=== PATIENT | female | born 1995 | race Caucasian/White ===

== ENCOUNTER → 2018-03-06 14:15 | Outpatient (CLI) | payer OTHER, SELFPAY ==
--- NOTE | 2018-03-06 14:15 | DT_ITS ---
This patient was seen during an EMR downtime March 02, 2018 - March 09, 2018. This patient may have a combination of paper and electronic documentation or all paper documentation. All documentation is viewable within the e-chart portion of [facility] for each patient visit.
[2018-03-14 10:25] LABS: EBV Acute VCA IgM > 160.0 U/mL (0.0-35.9); EBV Early Antigen IgG >150.0 U/mL (0.0-8.9); EBV Nuclear Antigen IgG < 18.0 U/mL (0.0-17.9); EBV-VCA IgG 88.1 U/mL (0.0-17.9)
== END ==
PROVIDERS: Family Provider Family Medicine; PCP Family Medicine; Visit Provider Otolaryngology
DX: J03.90 Acute tonsillitis, unspecified (principal)
CPT/HCPCS: 36415; 86663; 86664; 86665; 87070; 87077; 87186

== ENCOUNTER → 2019-03-17 | Outpatient (CLI) | payer OTHER, SELFPAY ==
[2019-03-17 08:59] VITALS: BMI 24.5
[2019-03-17 17:36] LABS: Chlamydia Trachomatis by PCR Negative (Negative); Neisserai gonorrhoeae by PCR Negative (Negative); Probe Check PASS; Sample Adequacy Control PASS; Specimen Processing Control PASS
== END | disposition home or self-care (01) ==
LOC: LABSPEC 13:43
PROVIDERS: Family Provider Family Medicine; PCP Family Medicine; Referring Provider Nurse Practitioner Women's Health; Visit Provider Nurse Practitioner Women's Health
DX: Z11.3 Encounter for screening for infections with a predominantly sexual mode of transmission (principal)
CPT/HCPCS: 87491; 87591

== ENCOUNTER → 2019-05-11 09:13 | Outpatient (CLI) | payer OTHER, SELFPAY ==
[2019-05-11 08:50] VITALS: BMI 24.5
[2019-05-11 09:36] LABS: Absolute Lymphocyte Count 1.58 X10^3/uL (0.83-4.51); Absolute Neutrophil Count 5.1 X10^3/uL (2.0-7.7); Basophil# 0.02 X10^3/uL; Basophil% 0.3 % (0-1); Eosinophil# 0.04 X10^3/uL; Eosinophils% 0.5 % (0-5); Hematocrit 36.2 % (37-47); Hemoglobin 12.2 g/dL (12.0-15.0); Lymphocyte # 1.58 X10^3/ul (4.0); Lymphocyte % 21.4 % (19-41); Mean Corp Hgb Conc 33.7 g/dL (32-36); Mean Corpuscular Hgb 30.3 pg (27.0-32.0); Mean Corpuscular Volume 89.8 fL (81-99); Mean Platelet Vol. 10.4 fl (6.2-12.0); Monocyte# 0.55 X10^3/uL; Monocyte% 7.5 % (0-10); NRBC Flagged by Analyzer 0 % (0-5); Neutrophil # 5.14 X10^3/uL (2.7-7.7); Neutrophil % 69.8 % (47-70); Platelet Count 247 K/mm3 (150-450); RBC Distribution Width CV 12.1 % (11.6-14.6); RBC Distribution Width SD 39.6 fl (35.1-43.9); Red Blood Count 4.03 M/mm3 (4.2-5.4); White Blood Count 7.4 K/mm3 (4.4-11.0)
[2019-05-11 10:49] LABS: HIV - WCH Non-Reactive (Nonreactive); Hepatitis B Surface Antigen Non-Reactive (Nonreactive)
[2019-05-11 14:53] LABS: Chlamydia Trachomatis by PCR Negative (Negative); Neisserai gonorrhoeae by PCR Negative (Negative); Probe Check PASS; Sample Adequacy Control PASS; Specimen Processing Control PASS
[2019-05-14 01:38] LABS: Rapid Plasmin Reagin (RPR) NONREACTIVE (NONREACTIVE)
[2019-05-16 11:50] LABS: HPV Reflexed? NOT INDICATED
== END ==
PROVIDERS: Nurse Practitioner Women's Health; Family Provider Family Medicine; PCP Family Medicine; Referring Provider Obstetrics & Gynecology; Visit Provider Obstetrics & Gynecology
DX: Z34.90 Encounter for supervision of normal pregnancy, unspecified, unspecified trimester (principal)
CPT/HCPCS: 36415; 85025; 86592; 86703; 86762; 86850; 86900; 86901; 87086; 87340; 87491; 87591; 87624; 88175; G0145

== ENCOUNTER → 2019-05-17 11:25 | Outpatient (CLI) | payer OTHER, SELFPAY ==
[2019-05-11 08:50] VITALS: BMI 24.5
--- NOTE | 2019-05-17 11:26 | US_ITS ---
STUDY: FIRST TRIMESTER OBSTETRICAL ULTRASOUND REASON FOR EXAM: Female, 24 years old. assessment LMP: TECHNIQUE: Transvaginal TECHNICAL QUALITY: Adequate. PRIOR ULTRASOUND: None. FINDINGS: There is visualization of a single gestational sac in a normal intrauterine position. The mean sac diameter (MSD) measures 2.14 cm, indicating an estimated gestational age (EGA) of 7 weeks, 1 days. The gestational sac shape is within normal limits. There is a visualized yolk sac. The yolk sac measures 2.7 mm. The placenta is non-visualized. There is visualization of a live embryo. The crown-rump length (CRL) measures 9.4 mm, indicating an estimated gestational age (EGA) of 7 weeks, 0 days. There is demonstrated cardiac activity with a heart rate of 141 bpm. The estimated gestation age (EGA) by US is 7 weeks, 1 days. The estimated date of delivery (KISHA) by US is 01/02/2020. The uterus measures 3.0 x 5.9 x 4.6 cm. There is no demonstrated uterine fibroid. The cervix is closed. The right ovary measures 3.5 x 2.5 x 2.2 cm. There is no right ovarian cyst. There is no visualized right adnexal mass or complex lesion. The left ovary measures 2.2 x 1.4 x 1.5 cm. There is no left ovarian cyst. There is no visualized left adnexal mass or complex lesion. There is a moderate amount of fluid in the cul de sac. US/Init OB < 14Wks US IMPRESSION: Viable 7 weeks 1 day gestation with heart motion of 141 BPM. Moderate free fluid in the cul-de-sac. Cervix is closed. KISHA is 01/02/2020 Electronically Signed: Jose Flannery MD at 15:58 EDT Tel [phone], Service support ,
== END ==
PROVIDERS: Family Provider Family Medicine; PCP Family Medicine; Referring Provider Nurse Practitioner Women's Health; Visit Provider Nurse Practitioner Women's Health
DX: Z78.9 Other specified health status (principal)
CPT/HCPCS: 76801

== ENCOUNTER → 2019-06-09 11:23 | Outpatient (CLI) | payer OTHER, SELFPAY ==
[2019-06-09 11:22] VITALS: BMI 24.5
== END ==
PROVIDERS: Family Provider Family Medicine; PCP Family Medicine; Referring Provider Obstetrics & Gynecology; Visit Provider Obstetrics & Gynecology
DX: Z34.81 Encounter for supervision of other normal pregnancy, first trimester (principal)
CPT/HCPCS: 36415

== ENCOUNTER → 2019-08-19 07:46 | Outpatient (CLI) | payer OTHER, SELFPAY ==
[2019-08-04 10:40] VITALS: BMI 24.5
[2019-08-04 10:50] VITALS: BMI 25.7
--- NOTE | 2019-08-19 07:47 | US_ITS ---
STUDY: SECOND AND THIRD TRIMESTER OBSTETRICAL ULTRASOUND REASON FOR EXAM: Female, 24 years old . anatomy. LMP: March 29, 2019. TECHNIQUE: Transabdominal TECHNICAL QUALITY: Adequate. PRIOR ULTRASOUND: Comparison is made with prior study dated May 17, 2019. FINDINGS: There is a single intrauterine fetus. The fetus is in a transverse lie with the head on the maternal right side. There is demonstrated cardiac activity with a heart rate of 145 bpm. There is a normal amniotic fluid volume. The largest amniotic fluid pocket measures 3.6 cm x 4 cm. The amniotic fluid index (LAKIA) is within normal limits. The placenta is posterior in location and is not low lying. There are Grade 0 placental changes. The cervix measures 4.1 cm in length. The bilateral adnexal regions are normal. BIOMETRY: BPD: 4.7 cm: 20 weeks, 1 days HC: 18.5 cm: 20 weeks, 5 days AC: 15.6 cm: 20 weeks, 5 days FL: 3.4 cm: 20 weeks, 4 days CI: 74% FL/BPD: 72% FL/HC: FL/AC: 22% HC/AC: 1.19 age by current US: 20 weeks, 4 days. KISHA by current US: January 02, 2020. Estimated weight: 372 grams, +/- 55 grams, 52 %. age by prior US: 20 weeks, 4 days. KISHA by prior US: January 02, 2020. Age by LMP: 20 weeks, 3 days. KISHA by LMP: January 03, 2020. ANATOMY: Gender: Male Cranium: Normal lateral ventricles. Normal choroid plexus. Normal cerebellum. Normal cisterna magna. Normal face, nose and lips. Chest: Normal 4-chamber heart. Abdomen/Pelvis: Normal diaphragm. Normal stomach. Normal abdominal wall. Normal cord insertion. Normal 3 vessel cord. Normal kidneys. Normal bladder. Spine: Normal cervical spine. Normal thoracic spine. Normal lumbar spine. Normal sacrum. Extremities: Normal bilateral upper extremities. Normal bilateral lower extremities. US/OB Anatomy Scan IMPRESSION: Single live intrauterine gestation with a mean gestational age of 20 weeks and 4 days. The measurements obtained today following the normal expected range. Electronically Signed: Viet Garcia, at 13:33 EST , Service support ,
== END ==
PROVIDERS: Referring Provider Obstetrics & Gynecology; Visit Provider Obstetrics & Gynecology
DX: O32.2XX0 Maternal care for transverse and oblique lie, not applicable or unspecified (principal); Z3A.20 20 weeks gestation of pregnancy
CPT/HCPCS: 76805

== ENCOUNTER → 2019-09-30 10:35 | Outpatient (CLI) | payer OTHER, SELFPAY ==
[2019-09-01 11:14] VITALS: BMI 25.7
[2019-09-30 11:09] LABS: Absolute Lymphocyte Count 1.65 X10^3/uL (0.83-4.51); Absolute Neutrophil Count 6.4 X10^3/uL (2.0-7.7); Basophil# 0.03 X10^3/uL; Basophil% 0.3 % (0-1); Eosinophil# 0.05 X10^3/uL; Eosinophils% 0.6 % (0-5); Hematocrit 27.8 % (37-47); Hemoglobin 9.3 g/dL (12.0-15.0); Lymphocyte # 1.65 X10^3/ul (4.0); Lymphocyte % 18.7 % (19-41); Mean Corp Hgb Conc 33.5 g/dL (32-36); Mean Corpuscular Hgb 30.3 pg (27.0-32.0); Mean Corpuscular Volume 90.6 fL (81-99); Mean Platelet Vol. 10.2 fl (6.2-12.0); Monocyte# 0.49 X10^3/uL; Monocyte% 5.6 % (0-10); NRBC Flagged by Analyzer 0 % (0-5); Neutrophil # 6.43 X10^3/uL (2.7-7.7); Platelet Count 225 K/mm3 (150-450); RBC Distribution Width CV 12.6 % (11.6-14.6); RBC Distribution Width SD 41.1 fl (35.1-43.9); Red Blood Count 3.07 M/mm3 (4.2-5.4); White Blood Count 8.8 K/mm3 (4.4-11.0)
[2019-09-30 11:23] LABS: Glucose Challenge Gest 1H 50g 187 mg/dL (70-140)
== END ==
PROVIDERS: Nurse Practitioner Women's Health; Visit Provider Obstetrics & Gynecology
DX: Z34.00 Encounter for supervision of normal first pregnancy, unspecified trimester (principal)
CPT/HCPCS: 36415; 82950; 85025

== ENCOUNTER 2019-10-25 11:00 | Outpatient (RCR) | payer OTHER, SELFPAY ==
[2019-09-30 11:21] VITALS: BMI 25.7
== END 2019-10-29 23:59 ==
LOC: DC 11:00
PROVIDERS: Visit Provider Obstetrics & Gynecology
DX: Z71.3 Dietary counseling and surveillance (principal); O24.419 Gestational diabetes mellitus in pregnancy, unspecified control
CPT/HCPCS: 97802; G0108

== ENCOUNTER 2019-11-03 10:00 | Outpatient (RCR) | payer OTHER, SELFPAY ==
[2019-10-28 10:43] VITALS: BMI 25.7
== END 2019-11-03 23:59 | disposition home or self-care (01) ==
LOC: DC 10:00
PROVIDERS: Visit Provider Obstetrics & Gynecology
DX: Z71.3 Dietary counseling and surveillance (principal); O24.419 Gestational diabetes mellitus in pregnancy, unspecified control; Z3A.00 Weeks of gestation of pregnancy not specified

== ENCOUNTER → 2019-12-09 12:26 | Outpatient (CLI) | payer OTHER, SELFPAY ==
[2019-11-25 09:07] VITALS: BMI 25.7
[2019-12-09 09:09] VITALS: BMI 25.7
--- NOTE | 2019-12-09 12:27 | US_ITS ---
STUDY: SECOND AND THIRD TRIMESTER OBSTETRICAL ULTRASOUND REASON FOR EXAM: Female, 24 years old growth LMP: Unknown. TECHNIQUE: Transabdominal TECHNICAL QUALITY: Adequate. PRIOR ULTRASOUND: Previous study of 08/19/2019 FINDINGS: There is a single intrauterine fetus. The fetus is in a cephalic presentation. There is demonstrated cardiac activity with a heart rate of 147 bpm. There is a normal amniotic fluid volume. The largest amniotic fluid pocket measures 4.4 cm. The amniotic fluid index (LAKIA) is 13.1 cm. The placenta is posterior in location and is not low lying. There are Grade 2 placental changes. The cervix was not visualized. The adnexal regions are not visualized. BIOMETRY: BPD: 9.5 cm: 38 weeks, 3 days HC: 33.8 cm: 38 weeks, 5 days AC: 32.2 cm: 36 weeks, 0 days FL: 7.1 cm: 36 weeks, 2 days CI: 82% FL/BPD: 75% FL/AC: 22% HC/AC: 1.05 age by current US: 36 weeks, 4 days. KISHA by current US: 01/02/2020. Estimated weight: 3020 grams, +/- 447 grams, 55 %. age by prior US: 36 weeks, 4 days. KISHA by prior US: 01/02/2020. Age by LMP: 37 weeks, 5 days. KISHA by LMP: 12/25/2019. US/OB Limited With Biometrics IMPRESSION: Single viable intrauterine of approximately 36 weeks 4 days gestational age. The fetus is in cephalic presentation. The heart rate of 147 bpm is noted. Electronically Signed: Terry Smith MD at 18:57 EDT , Service support ,
== END ==
PROVIDERS: Referring Provider Obstetrics & Gynecology; Visit Provider Obstetrics & Gynecology
DX: O24.410 Gestational diabetes mellitus in pregnancy, diet controlled (principal); Z3A.36 36 weeks gestation of pregnancy
CPT/HCPCS: 76816; 87081

== ENCOUNTER 2019-12-16 17:45 | Outpatient (CLI) | payer OTHER, SELFPAY ==
[2019-12-13 14:01] VITALS: BMI 25.7
[2019-12-16 17:55] VITALS: BP 131/68; PULSE 98
[2019-12-16 18:03] VITALS: BMI 29.7
--- NOTE | 2019-12-22 06:53 | OB.TRI.PN ---
Progress Notes Date of Service: 12/16/19 Progress Note: Patient presents for triage evaluation secondary to decreased movement FHT: 130 Moderate variability reactive no decelerations category I tracing [place]: Irregular contractions Assessment and plan: deCreased movement reactive NST, reassuring maternal and status patient discharged to home to follow-up as scheduled. See problem list details for additional plan information. Multi Select Codes - Urinary/Genital Urinary/Genital CPT Codes: 35185 Vaginal Delivery global pkg
== END 2019-12-16 18:43 | disposition home or self-care (01) ==
LOC: WPOUT 17:48 → WP 17:49
PROVIDERS: Referring Provider Obstetrics & Gynecology; Visit Provider Obstetrics & Gynecology
DX: O36.8190 Decreased fetal movements, unspecified trimester, not applicable or unspecified (principal); Z3A.00 Weeks of gestation of pregnancy not specified
CPT/HCPCS: 59025; 59050; 99218; G0378

== ENCOUNTER → 2019-12-20 13:33 | Outpatient (CLI) | payer OTHER, SELFPAY ==
[2019-12-20 13:11] VITALS: BMI 29.7
[2019-12-20 13:48] LABS: Absolute Lymphocyte Count 1.71 X10^3/uL (0.83-4.51); Absolute Neutrophil Count 5.2 X10^3/uL (2.0-7.7); Basophil# 0.01 X10^3/uL; Basophil% 0.1 % (0-1); Eosinophil# 0.03 X10^3/uL; Eosinophils% 0.4 % (0-5); Hematocrit 29.5 % (37-47); Hemoglobin 9.4 g/dL (12.0-15.0); Lymphocyte # 1.71 X10^3/ul (4.0); Lymphocyte % 22.4 % (19-41); Mean Corp Hgb Conc 31.9 g/dL (32-36); Mean Corpuscular Hgb 28.1 pg (27.0-32.0); Mean Corpuscular Volume 88.3 fL (81-99); Mean Platelet Vol. 11.5 fl (6.2-12.0); Monocyte# 0.59 X10^3/uL; Monocyte% 7.7 % (0-10); NRBC Flagged by Analyzer 0 % (0-5); Neutrophil # 5.24 X10^3/uL (2.7-7.7); Neutrophil % 68.5 % (47-70); Platelet Count 227 K/mm3 (150-450); RBC Distribution Width CV 13.9 % (11.6-14.6); RBC Distribution Width SD 44.5 fl (35.1-43.9); Red Blood Count 3.34 M/mm3 (4.2-5.4); White Blood Count 7.7 K/mm3 (4.4-11.0)
== END ==
PROVIDERS: Referring Provider Obstetrics & Gynecology; Visit Provider Obstetrics & Gynecology
DX: O99.019 Anemia complicating pregnancy, unspecified trimester (principal); Z3A.00 Weeks of gestation of pregnancy not specified
CPT/HCPCS: 36415; 85025

== ENCOUNTER → 2019-12-23 09:54 | Outpatient (CLI) | payer OTHER, SELFPAY ==
[2019-12-20 13:11] VITALS: BMI 29.7
[2019-12-23 10:27] VITALS: BP 131/73; PULSE 107; RESP 16; TEMP 36.6; O2SAT 98; BMI 30.2
[2019-12-23] MEDS: 0.9% NaCl IVPB Med Flush (250 mL) 15 ML IV (10:31)
== END ==
PROVIDERS: Referring Provider Obstetrics & Gynecology; Visit Provider Obstetrics & Gynecology
DX: O99.019 Anemia complicating pregnancy, unspecified trimester (principal); D64.9 Anemia, unspecified; Z3A.00 Weeks of gestation of pregnancy not specified
CPT/HCPCS: 96365; 96366; J1756; J7050

== ENCOUNTER 2019-12-24 23:38 | Outpatient (CLI) | payer OTHER, SELFPAY ==
[2019-12-23 10:27] VITALS: BMI 30.2
[2019-12-24 23:49] VITALS: BP 130/75; PULSE 100; TEMP 37; O2SAT 97
[2019-12-25] VITALS: BMI 30.2
--- NOTE | 2019-12-25 00:38 | OB.TRI.PN_ITS ---
Progress Notes Date of Service: 12/25/19 Progress Note: Patient presents for triage evaluation secondary to contractions FHT: 130 Moderate variability reactive no decelerations category I tracing [place]: irregular Contractions Assessment and plan: false labor Reactive NST, reassuring maternal and status patient discharged to home to follow-up as scheduled. See problem list details for additional plan information. Multi Select Codes - Urinary/Genital Urinary/Genital CPT Codes: 71248-43 non-stress test Interp
== END 2019-12-25 00:21 | disposition home or self-care (01) ==
LOC: WPOUT 23:43 → OBT 23:43
PROVIDERS: Visit Provider Obstetrics & Gynecology
DX: O47.9 False labor, unspecified (principal); Z3A.00 Weeks of gestation of pregnancy not specified
CPT/HCPCS: 59025; 59050; 99218; G0378

== ENCOUNTER 2019-12-29 18:50 | Inpatient (IN) | payer OTHER, SELFPAY ==
[2019-10-13 11:53] VITALS: BMI 25.7
[2019-12-27 14:01] VITALS: BMI 30.2
[2019-12-29] VITALS (7 sets, daily range): BP systolic 118–138; BP diastolic 62–73; PULSE 85–100; TEMP 36.2–36.6; O2SAT 96–98; BMI 30.3
[2019-12-29] MEDS: Lactated Ringers 1,000 ML 50 ML IV (19:20)
[2019-12-29 19:48] LABS: Absolute Lymphocyte Count 1.96 X10^3/uL (0.83-4.51); Basophil# 0.02 X10^3/uL; Basophil% 0.3 % (0-1); Eosinophil# 0.04 X10^3/uL; Eosinophils% 0.5 % (0-5); Hematocrit 29.2 % (37-47); Hemoglobin 9.3 g/dL (12.0-15.0); Lymphocyte # 1.96 X10^3/ul (4.0); Mean Corp Hgb Conc 31.8 g/dL (32-36); Mean Corpuscular Hgb 28.4 pg (27.0-32.0); Mean Platelet Vol. 11.8 fl (6.2-12.0); Monocyte# 0.52 X10^3/uL; Monocyte% 6.9 % (0-10); NRBC Flagged by Analyzer 0 % (0-5); Neutrophil # 4.95 X10^3/uL (2.7-7.7); Neutrophil % 65.6 % (47-70); Platelet Count 214 K/mm3 (150-450); RBC Distribution Width CV 14.7 % (11.6-14.6); RBC Distribution Width SD 45.1 fl (35.1-43.9); Red Blood Count 3.28 M/mm3 (4.2-5.4); White Blood Count 7.5 K/mm3 (4.4-11.0)
[2019-12-29] MEDS: miSOPROStol 25 MCG TABLET VAGINAL (20:13)
--- NOTE | 2019-12-29 20:49 | PCM.HP.OB ---
- Problem List (1) Anemia affecting Status: Acute Qualifiers: Comment: iron added, recheck CBC in 4 weeks (2) Gestational diabetes Status: Acute Qualifiers: Comment: s/p nutrition consult. 36 week growth scan normal and deliver by 40 weeks (3) LGSIL on Pap smear of cervix Status: Acute Comment: rpt pap 1 year(04/2020) (4) Status: Acute Qualifiers: Comment: declined carrier and ntd screening. NIPT low risk (5) Supervision of normal first Status: Acute Qualifiers: Comment: PRR KISHA: 01/02/20 Jamaal merrill:Dorian History Date of Admission: 12/29/19 Final KISHA: 01/02/20 Gestational age: 39 Weeks and 3 Days History of this : This is a 24 year-old, G 1P0, at 39 weeks gestational age presents for induction of labor secondary to gestational diabetes with decreased control the last 2 weeks. Blood sugars have mainly been fasting 80s to low 90s in 2 hours under 120s with the occasional over 130s denies any vaginal bleeding loss of fluid admits good movement and no regular contractions. Allergies No Known Allergies Allergy (Verified 12/29/19 20:20) Home Medications: Home Medications Vits [Prenatabs FA] 1 tab PO DAILY 12/16/19 Smoking Status: Never smoker Alcohol: None Number of Fetus(es): 1 NST - FHR Rate Baby A Baseline: 130 Variability:: Moderate Accelerations:: 15 x 15 Decelerations:: None NST Reactive:: Yes FHR Category:: Category I Uterine Activity:: Irregular History Past Pregnancies: Past Pregnancies Delivery Date Name GA/ Weeks Outcome Route Wt Infant Sex Labor Length Anesthesia Delivery Location Provider FOB Labs: Mom's Labs & Results 12/29/19 12/29/19 19:20 19:20 WBC 7.5 RBC 3.28 L Hgb 9.3 L Hct 29.2 L MCV 89.0 MCH 28.4 MCHC 31.8 L RDW Std Deviation 45.1 H RDW Coeff of Brandon 14.7 H Plt Count 214 MPV 11.8 Immature Gran % (Auto) 0.700 Neut % (Auto) 65.6 Lymph % (Auto) 26.0 Stanley % (Auto) 6.9 Eos % (Auto) 0.5 Baso % (Auto) 0.3 Absolute Neuts (auto) 5.0 Absolute Lymphs (auto) 1.96 Nucleated RBC % 0 Blood Type A POSITIVE Antibody Screen NEGATIVE Course Did the patient receive Yes care? Labs Blood Type: A RH: POSITIVE RPR/VDRL/Syphilis Nonreactive Rubella status Immune HbSAg Negative Date Done: 05/11/19 Chlamydia Negative Gonorrhea Negative HIV/AIDS Non-Reactive Group B Strep: Negative Current Obstetrical History Gestational Diabetes Yes: diet controlled Incompetent Cervix No Infertility No IUGR No Macrosomia No Hypertension/Pre-eclampsia No Placenta Previa/Abruption No PTL/PROM No Uterine anomaly No Oligohydramnios No Polyhydramnios No Multiple gestation No Past Medical History Asthma No Diabetes No Hypertension No Heart disease No Mitral valve prolapse No Neurologic/Seizure disorder/ No Migraines Kidney disease No Liver disease No Varicosities No Clotting disorders/Hx of DVT No Thyroid Dysfunction No Other medical diseases No Psychiatric disorders No Major trauma No Abnormal PAP smear No: irregular cell growth, no follow up Sleep apnea No Mammogram in the last 2 years No Enter DETAILS of medical Hx:anemia history Social History Marital Status: SINGLE Alleged father Dorian Duong Hx Smoking No Smoking Status Never smoker Expected Infant Delivery Method: Spontaneous Vaginal Review of Systems Constitutional: Denies: Fever, Malaise Eyes: Denies: Blurred vision, Vision Change HEENT: Denies: Head Aches, Visual Changes Cardiovascular: Denies: Chest Pain, Palpitations Respiratory: Denies: Cough, Shortness of Breath, Wheezing Gastrointestinal: Denies: Abdominal Pain, Diarrhea, Nausea, Vomiting Genitourinary: Denies: Dysuria, Hematuria Musculoskeletal: Denies: Joint Pain, Muscle pain Skin: Denies: Lesions, Rash Neurological: Denies: Blurred vision, Focal weakness, Headaches Psychiatric: Denies: Anxiety, Depression Endocrine: Denies: Heat/ Cold Intolerance Hematologic/ Lymphatic: Denies: Easy Bruising, Easy Bleeding Physical Exam Vitals: Vital Signs Pulse BP Pulse Ox 100 138/72 H 96 12/29/19 19:32 12/29/19 19:32 12/29/19 19:31 General: Alert, Cooperative, No apparent distress HEENT: Atraumatic, Normocephalic. Negative for: Thyromegaly, Lymphadenopathy Cardiovascular: Regular rate Lungs: Normal air movement Abdomen: Soft, Non Tender, Gravid Neurological: Deep Tendon Reflexes 2+/4 and Symmetrical, Neuro grossly intact. 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 Negative for: Vulvar lesions Estimated gestational size: Appropriate for gestational size - Estimated weight 3500 to 3750 g Presentation: Cephalic Cervix Dilation (cm): 1.5 Station: -2 Assessment/Plan All Active Problems (Last Reviewed 12/27/19 @ 13:57 by Jacquie Fuentes) Anemia affecting (Acute) Gestational diabetes (Acute) LGSIL on Pap smear of cervix (Acute) (Acute) Supervision of normal first (Acute) This is a 24 year-old, G 1P0, at 39 weeks gestational age presents for induction of labor secondary to gestational diabetes with decreasing control. Patient presents IOL, plan management for , start with Cytotec and possible Day bulb, Pitocin/AROM as needed. Pain management: Plans epidural. GBS negative. Management of any complications: Gestational diabetes?check blood sugars per protocol I have reviewed the [facility] and made any clinically relevant updates.
[2019-12-29] MEDS: 0.9% Saline Lock 10 ML Syringe IV (21:46)
[2019-12-29 21:56] LABS: Bedside Glucose 107 mg/dL (70-110)
[2019-12-29 22:00] LABS: Bedside Glucose 74 mg/dL (70-110)
[2019-12-29] MEDS: Acetaminophen 325 MG Tablet PO (22:02)
[2019-12-30] VITALS (56 sets, daily range): BP systolic 109–157; BP diastolic 53–91; PULSE 58–190; TEMP 36.6–37.7; O2SAT 79–100
[2019-12-30] MEDS: miSOPROStol 50 MCG TABLET VAGINAL (00:13)
[2019-12-30] MEDS: 0.9% Normal Saline Single 100 ML IV.SOLN. IY (05:01)
[2019-12-30] MEDS: Oxytocin 30 units/NS 500 ml 30 UNITS/500 ML IV.SOLN IV (05:06)
[2019-12-30 07:48] LABS: Bedside Glucose 109 mg/dL (70-110)
[2019-12-30 07:48] LABS: Bedside Glucose 64 mg/dL (70-110)
[2019-12-30 07:48] LABS: Bedside Glucose 83 mg/dL (70-110)
[2019-12-30 10:11] LABS: Bedside Glucose 64 mg/dL (70-110)
[2019-12-30 10:46] LABS: Bedside Glucose 97 mg/dL (70-110)
[2019-12-30] MEDS: Lactated Ringers 500 ML 999 ML IV (12:31)
[2019-12-30] MEDS: fentaNYL-bupivacaine (epidural) 100 ML BAG EPIDURAL ×2 (14:57→19:30)
[2019-12-30 15:26] LABS: Bedside Glucose 85 mg/dL (70-110)
[2019-12-30] MEDS: Ondansetron 4 MG/2 ML Vial IV (16:51)
[2019-12-30] MEDS: Lactated Ringers 1,000 ML 200 ML IV ×2 (16:54→21:51)
[2019-12-30 18:31] LABS: Bedside Glucose 63 mg/dL (70-110)
[2019-12-30] MEDS: Acetaminophen 325 MG Tablet PO (20:11)
[2019-12-30 22:41] LABS: Bedside Glucose 82 mg/dL (70-110)
[2019-12-30 23:31] LABS: Bedside Glucose 92 mg/dL (70-110)
[2019-12-31] VITALS (69 sets, daily range): BP systolic 108–164; BP diastolic 59–113; PULSE 71–187; RESP 16–18; TEMP 37–39.4; O2SAT 79–99
[2019-12-31 00:26] LABS: Bedside Glucose 68 mg/dL (70-110)
[2019-12-31] MEDS: fentaNYL-bupivacaine (epidural) 100 ML BAG EPIDURAL (01:38)
[2019-12-31 01:41] LABS: Bedside Glucose 82 mg/dL (70-110)
[2019-12-31 02:31] LABS: Bedside Glucose 63 mg/dL (70-110)
[2019-12-31] MEDS: Lactated Ringers 500 ML 999 ML IV (03:03)
[2019-12-31 03:30] LABS: Bedside Glucose 80 mg/dL (70-110)
--- NOTE | 2019-12-31 03:35 | PCM.PN.BLA ---
Progress Note 9 cm, cat II tracing but overall reassuring. pitocin at 20. pelvic floor muscles palpated to be tight but patient is comfortable. plan position changes and then reevaluate in an hour STROKE Vital Signs/Narrative: Vital Signs Temp Pulse BP Pulse Ox 12/31/19 03:29 96 98 12/31/19 03:24 187 H 96 12/31/19 03:23 127 H 140/72 H 12/31/19 03:18 96 150/76 H 12/31/19 03:14 93 143/67 H 12/31/19 03:09 101 H 150/113 H 12/31/19 03:05 97 141/81 H 12/31/19 03:00 110 H 155/97 H 12/31/19 02:54 101 H 146/81 H 12/31/19 02:53 101 H 95 12/31/19 02:49 88 164/79 H 12/31/19 02:48 98 12/31/19 02:43 89 130/64 H 95 12/31/19 02:38 95 133/73 H 98 12/31/19 02:22 99.8 F H 86 141/65 H 99 12/31/19 01:40 78 140/73 H 12/31/19 01:35 82 135/65 H 12/31/19 01:31 82 126/70 H 12/31/19 01:25 78 136/70 H 12/31/19 01:19 90 136/66 H 12/31/19 01:16 74 138/67 H 12/31/19 01:10 83 140/68 H 12/31/19 01:05 89 133/76 H 12/31/19 01:00 84 136/65 H 12/31/19 00:55 94 138/70 H 99 12/31/19 00:51 81 132/65 H 12/31/19 00:50 82 99 12/31/19 00:46 80 131/79 H 12/31/19 00:45 79 99 12/31/19 00:40 91 135/65 H 99 12/31/19 00:16 98.6 F 71 142/83 H 99
[2019-12-31] MEDS: Lactated Ringers 1,000 ML 200 ML IV (03:37)
[2019-12-31] MEDS: Acetaminophen 325 MG Tablet PO (04:54)
[2019-12-31 05:06] LABS: Bedside Glucose 81 mg/dL (70-110)
[2019-12-31] MEDS: Ondansetron 4 MG/2 ML Vial IV ×2 (05:27→11:44)
[2019-12-31] MEDS: Sodium Citrate/Citric Acid 30 ML UDC PO (06:01)
--- NOTE | 2019-12-31 06:03 | PCM.PN.BLA ---
Progress Note patient has been 9-10 cm since 1230, pitocin at 20 mU with pitocin washout earlier, AOD at 0 station. two attempts at pushing through and reducing the cervix are unsuccessful- recommend proceeding with primary for delivery. risks and benefits discussed and patient agreeable. STROKE Vital Signs/Narrative: Vital Signs Temp Pulse BP Pulse Ox 12/31/19 05:38 103.0 F H 12/31/19 05:31 117 H 130/71 H 12/31/19 05:29 79 12/31/19 05:20 127 H 95 12/31/19 05:15 113 H 96 12/31/19 05:10 112 H 96 12/31/19 05:05 112 H 96 12/31/19 05:00 111 H 96 12/31/19 04:56 119 H 93 12/31/19 04:50 106 H 95 12/31/19 04:45 109 H 96 12/31/19 04:42 114 H 94 12/31/19 04:40 105 H 96 12/31/19 04:35 104 H 96 12/31/19 04:30 107 H 134/71 H 97 12/31/19 04:27 100.6 F H 12/31/19 03:55 100.4 F H 12/31/19 03:29 96 98 12/31/19 03:24 187 H 96 12/31/19 03:23 127 H 140/72 H 12/31/19 03:18 96 150/76 H 12/31/19 03:14 93 143/67 H 12/31/19 03:09 101 H 150/113 H 12/31/19 03:05 97 141/81 H 12/31/19 03:00 110 H 155/97 H 12/31/19 02:54 101 H 146/81 H 12/31/19 02:53 101 H 95 12/31/19 02:49 88 164/79 H 12/31/19 02:48 98 12/31/19 02:43 89 130/64 H 95 12/31/19 02:38 95 133/73 H 98 12/31/19 02:22 99.8 F H 86 141/65 H 99
--- NOTE | 2019-12-31 06:05 | OP.PCM_ITS ---
Problem List (1) Anemia affecting Status: Acute Qualifiers: Comment: iron added, recheck CBC in 4 weeks (2) Gestational diabetes Status: Acute Qualifiers: Comment: s/p nutrition consult. 36 week growth scan normal and deliver by 40 weeks (3) LGSIL on Pap smear of cervix Status: Acute Comment: rpt pap 1 year(04/2020) (4) Status: Acute Qualifiers: Comment: declined carrier and ntd screening. NIPT low risk (5) Supervision of normal first Status: Acute Qualifiers: Comment: PRR KISHA: 01/02/20 Jamaal merrill:Dorain Delivery Classification: MEETA Special Medications: none Implants Used: none Date of Procedure: 12/31/19 Pre-Operative Diagnosis: iol gestational diabetes, AOD 9-10cm 0 station, CPD, maternal fever suspected triple I Post-Operative Diagnosis: same Indications for : Failure to Progress, Suspected chorioamnionitis (Suspected Triple I) Description of Procedure: 24-year-old G1, P0 at 39 weeks 4 days presented for induction of labor secondary to gestational diabetes diet controlled with declining glucose control in the last week and a half. Decision was made for induction of labor and patient underwent Cytotec and then Day bulb and Pitocin. After 24 hours of Pitocin and 17 hours of rupture of membranes, patient experienced an arrest of descent at 9 to 10 cm and 0 station with Pitocin at 20 milliunits and attempt to reduce the cervix unsuccessful. Decision was made for primary low transverse C- section. The patient was placed in the dorsal supine position with leftward tilt. Patient was prepped and draped in the normal sterile fashion. Pfannenstiel skin incision was made with the scalpel and carried through to the underlying layer of fascia with the scalpel. Fascia was nicked in the midline and the incision extended laterally. The rectus bellies were dissected off superiorly and inferiorly with out complication both sharply and bluntly. The peritoneum was entered digitally. The incision was stretched and a low transverse uterine incision was made with the scalpel. The 's head was delivered atraumatically followed by the anterior and posterior shoulders without complication the rest of the delivered. The cord was clamped and cut and the infant was handed off to awaiting nurse. The placenta was delivered spontaneously immediately following and was noted to be intact and have a three- vessel cord. The uterus was exteriorized cleared of all clots and debris, and the incision was closed in a double layer closure using #1 Monocryl. The ovaries and fallopian tubes were noted to be within normal limits. The uterus was returned to the maternal abdomen and gutters were cleared of all clots and debris. The peritoneum was closed with 3-0 Monocryl in a running fashion. Gloves were changed prior to fascial closure. Fascia was closed with 0 PDS in a running fashion. Subcutaneous tissue was copiously irrigated and the skin was closed with 3-0 Monocryl in a subcuticular fashion. Mepilex dressing was applied without complication. Patient was taken to recovery in stable condition. It was discussed with the patient that based on the clinical information obtained during this encounter, combined with her history, at this time I would recommend cesareans for future deliveries if further pregnancies are desired. Amniotic Membrane Rupture Type: Artificial Amniotic Fluid Description: Clear Placenta Disposition: [facility] Cord Entanglement: None Cord Vessel Description: 3 Vessels Gender: Male Antibiotic Given: Clindamycin 600mg IV x1 and Gentamicin 1.5mg/kg IV x1, Zithromax 500 mg/5 mL X1 - ampicillin Pt instructed on risks of surgery: Bleeding, Anesthesia Risks, Infection, Need for Future C-Sections, Injury to surrounding structure(s) including bowel and bladder Complications: None - Admit VTE Documentation VTE Present on Admission: No VTE Mechan Device Prophylaxis: SCD's Multi Select Codes - Urinary/Genital Urinary/Genital CPT Codes: 45880 Delivery [facility]
[2019-12-31] MEDS: Methylergonovine 0.2 MG/ML Ampul IM ×2 (06:39→10:49)
[2019-12-31] MEDS: Carboprost Tromethamine 250 MCG/ML Ampul IM (06:40)
[2019-12-31] MEDS: miSOPROStol 200 MCG Tablet 1000 MCG RECTAL (06:43)
[2019-12-31] MEDS: Oxytocin 30 units/NS 500 ml 30 UNITS/500 ML IV.SOLN 167 UNITS IV (07:40)
[2019-12-31 09:21] LABS: Bedside Glucose 69 mg/dL (70-110)
[2019-12-31 09:41] LABS: Bedside Glucose 79 mg/dL (70-110)
--- NOTE | 2019-12-31 10:17 | NURSING ---
attempted to wean patient to room air at this time. Pulse ox 93% on room air. Nasal cannula reapplied with 0.5L O2
--- NOTE | 2019-12-31 10:18 | NURSING ---
epidural catheter removed at this time. Blue tip intact. Bandaid placed at site. Patient tolerated without complaint of discomfort. Gown changed, pad change, and patient repositioned for comfort.
[2019-12-31] MEDS: 0.9% Saline Lock 10 ML Syringe IV (11:37)
[2019-12-31 11:42] LABS: Hematocrit 27.8 % (37-47); Hemoglobin 8.9 g/dL (12.0-15.0); Mean Corpuscular Hgb 28.7 pg (27.0-32.0); Mean Corpuscular Volume 89.7 fL (81-99); Mean Platelet Vol. 11.4 fl (6.2-12.0); Platelet Count 170 K/mm3 (150-450); RBC Distribution Width CV 14.9 % (11.6-14.6); RBC Distribution Width SD 45.6 fl (35.1-43.9); White Blood Count 14.8 K/mm3 (4.4-11.0)
[2019-12-31] MEDS: Acetaminophen 500 MG Tablet 1000 MG PO (11:48)
[2019-12-31] MEDS: Lactated Ringers 1,000 ML 100 ML IV (11:55)
[2019-12-31] MEDS: Ketorolac 30 MG/ML Syringe IV ×2 (13:13→18:49)
--- NOTE | 2019-12-31 17:00 | CASEMGMT ---
Social Work Labor and Delivery Unit Date of Intervention:?12.31.2019 Time of Intervention:?1700 ? Reason for Referral:?baby admitted to the [facility] ? Informant: ?Medical records, mother of baby (MOB) Ruth Batista, and father of baby (FOB) Dorian Duong. ?Educated MOB and FOB that this speech writer is assigned as the social services director for hospital of delivery labor and delivery unit, and for continuity of care of patient's admitted to the [facility] this speech writer also provides social work services to the [facility] ? History: MOB delivered Baby sacha Duong 4.. ?MOB is G1, P0 to 1 after delivering Abdelrahman. ? care started at 10 weeks and regular thereafter. ??Abdelrahman was born weighing 3.855 kg. ?Apgars 6-8-8 at 1-5-10 minutes of life. ?Abdelrahman is the first child for MOB and FOB. Parents are engaged. 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 ??MOB denies any formal history of depression or mental health history, though does admits to some depressed feelings early in the . ??No endorsement of any substance use issues for either parent. ?? ? Impression: MOB and FOB both pleasant and engaged in conversation with social services director. ?Parents report to have all needed supplies to care for baby at home. ??MOB reports will have support at home going from the FOB, parents, and other family members. ?MOB accepted information on JFS so as to apply for medicaid for the baby. ?The plan is to eventually get baby on [facility]'s insurance. ?MOB and FOB both listened to education on depression and anxiety, risk factors, and importance of seeking out help and support should symptoms arise. ??MOB voiced understanding. ??Neither MOB or FOB voice any concerns to this speech writer at this time. ??No voiced concerns by nursing staff regarding parent/child interactions or interactions between MOB and FOB. ?? ? Plan MOB discharge home when medically ready. Appropriate resources information given including packet on depression and where to turn for support and help if needed. ?? ? JERED Paris ?
--- NOTE | 2019-12-31 19:10 | NURSING ---
sleeping soundly pulse ox reading 90% on room air. o2 turned on at 1/2L/min per nasal cannula. pulse up to 95%
--- NOTE | 2019-12-31 23:34 | NURSING ---
pulse ox dipping to 93% o2 at 1/2l back on.
[2020-01-01] VITALS (8 sets, daily range): BP systolic 111–139; BP diastolic 65–84; PULSE 88–135; RESP 12–18; TEMP 36.6–37.5; O2SAT 93–97
[2020-01-01] MEDS: Ketorolac 30 MG/ML Syringe IV ×5 (00:20→23:57)
--- NOTE | 2020-01-01 00:35 | NURSING ---
o2 increased to 2l nc as pulseox dropping 91-93% while asleep atempted sloly incresing need 2l to keep 94% or above. pt pumped just before going to sleep.
[2020-01-01] MEDS: Lactated Ringers 1,000 ML 15 ML IV (03:17)
--- NOTE | 2020-01-01 03:31 | NURSING ---
abdomen less distended.
[2020-01-01 04:21] LABS: Bedside Glucose 70 mg/dL (70-110)
--- NOTE | 2020-01-01 05:43 | NURSING ---
Addendum entered by Brit Russell 01/01/20 05:46: edit time to 0515 Original Note: 0530 returning from bathroom and voiding states painful with getting up, will given toradol now.
--- NOTE | 2020-01-01 05:47 | NURSING ---
0515pulse ox dipping 93% when back in bed and o2 off so back on 2l when back to bed from bathroom
[2020-01-01 05:51] LABS: Hemoglobin 7.5 g/dL (12.0-15.0); Mean Corp Hgb Conc 31.3 g/dL (32-36); Mean Corpuscular Hgb 28.4 pg (27.0-32.0); Mean Corpuscular Volume 90.9 fL (81-99); Mean Platelet Vol. 11.3 fl (6.2-12.0); Platelet Count 146 K/mm3 (150-450); RBC Distribution Width CV 15.7 % (11.6-14.6); RBC Distribution Width SD 48.5 fl (35.1-43.9); Red Blood Count 2.64 M/mm3 (4.2-5.4); White Blood Count 13.7 K/mm3 (4.4-11.0)
--- NOTE | 2020-01-01 07:28 | NURSING ---
0710 back from bathroom o2 left off and cornelia monitor pulse ox currently 96%.
--- NOTE | 2020-01-01 07:28 | PCM.PN.OB ---
Subjective: doing well no complaints pain controlled no CP SOB N V ambulating well tolerating po lochia moderate, pumping going well afebrile - Physical Exam Vitals/I&O's: Vital Signs Temp Pulse Resp BP Pulse Ox 98.5 F 92 16 120/66 97 01/01/20 05:38 01/01/20 05:38 01/01/20 05:38 01/01/20 05:38 01/01/20 05:38 Oxygen Flow Rate (L/min) 2 Oxygen Delivery Method Nasal Cannula Weight: 166 lb Body Mass Index (BMI) 30.3 Intake and Output for Last 24 Hours 12/30/19 12/31/19 01/01/20 23:59 23:59 23:59 Intake Total 4874.60 / 4874.60 4395.68 / 4395.68 485.51 / 485.51 Output Total 1400 / 1400 1900 / 1900 450 / 450 Balance 3474.60 / 3474.60 2495.68 / 2495.68 35.51 / 35.51 General: Alert, Oriented x3 Lungs: Normal air movement Cardiovascular: Regular rate Abdomen: Soft, Non Tender, Distended - mild, improving Extremities: Edema Laboratory Results 12/31/19 09:11: POC Glucose 69 L 12/31/19 09:32: POC Glucose 79 12/31/19 11:25: WBC 14.8 H, RBC 3.10 L, Hgb 8.9 L, Hct 27.8 L, MCV 89.7, MCH 28.7, MCHC 32.0, RDW Std Deviation 45.6 H, RDW Coeff of Brandon 14.9 H, Plt Count 170, MPV 11.4 01/01/20 04:12: POC Glucose 70 01/01/20 05:30: WBC 13.7 H, RBC 2.64 L, Hgb 7.5 L, Hct 24.0 L, MCV 90.9, MCH 28.4, MCHC 31.3 L, RDW Std Deviation 48.5 H, RDW Coeff of Brandon 15.7 H, Plt Count 146 L, MPV 11.3 Current Medications Acetaminophen (Tylenol) 1,000 mg PO Q8H PRN PRN Reason: Pain Score 1-3/10 Last Admin: 12/31/19 11:48 Dose: 1,000 mg Documented by: Bisacodyl (Dulcolax) 10 mg RECTAL UD PRN PRN Reason: If no BM Hydrocortisone (Hytone) 1 applic TOPICAL TID PRN PRN; Protocol PRN Reason: Discomfort Lactated Ringer's () 1,000 mls @ 100 mls/hr IV .Q10H [facility] Last Infusion: 01/01/20 06:16 Dose: 15 mls/hr Documented by: Naloxone HCl 4 mg/ Dextrose 504 mls @ 0 mls/hr IV .Q0M PRN; Protocol PRN Reason: Respiratory depression Clindamycin Phosphate 900 mg/ (Dextrose) 106 mls @ 150 mls/hr IV Q8 [facility] Last Infusion: 01/01/20 06:16 Dose: Infused Documented by: Ampicillin Sodium 1,000 mg/ (Sodium Chloride) 50 mls @ 150 mls/hr IV Q4H [facility] Last Infusion: 01/01/20 04:33 Dose: Infused Documented by: Ketorolac Tromethamine (Toradol (Bkc)) 30 mg IV Q6 [facility] Stop: 01/02/20 06:01 Last Admin: 01/01/20 05:26 Dose: 30 mg Documented by: Methylergonovine Maleate (Methergine) 0.2 mg IM X1 PRN PRN Reason: Uterine Atony Last Admin: 12/31/19 10:49 Dose: 0.2 mg Documented by: Naloxone HCl (Narcan) 0.02 mg IV Q1M PRN PRN Reason: RR <10 and pt unresponsive Naproxen (Naprosyn) 250 - 500 mg PO Q8H PRN PRN PRN Reason: Pain Score 1-3/10 Ondansetron HCl (Zofran) 4 mg IV Q4H PRN PRN PRN Reason: Nausea Last Admin: 12/31/19 11:44 Dose: 4 mg Documented by: Oxycodone HCl (Oxyir) 5 - 10 mg PO Q4H PRN PRN PRN Reason: Pain Score 4-10/10 Multivit/Folic Acid/Iron (Prenatabs Fa) 1 tablet PO DAILY@1200 DIEGO Last Admin: 12/31/19 12:03 Dose: Not Given Documented by: Prochlorperazine Edisylate (Compazine Iv) 10 mg IV Q6H PRN PRN PRN Reason: NAUSEA Senna/Docusate Sodium (Senokot-S, Alina-Colace) 0 tablet PO DAILY PRN PRN Reason: Constipation Simethicone (Mylicon) 80 mg PO PCHS PRN PRN Reason: Indigestion/stomach pain Last Admin: 12/31/19 11:48 Dose: 80 mg Documented by: Sodium Chloride () 5 - 15 ml IV UD PRN PRN Reason: SALINE FLUSH Last Admin: 12/31/19 11:37 Dose: 10 ml Documented by: Medical Necessity - Tobacco Use Smoking Status: Never smoker Assessment/Plan All Active Problems (Last Reviewed 12/27/19 @ 13:57 by Jacquie Fuentes) Anemia affecting (Acute) Gestational diabetes (Acute) LGSIL on Pap smear of cervix (Acute) (Acute) Supervision of normal first (Acute) s/p LTCS PPD # 1 1. routine post care 2. breast feeding- support given 3. rh positive 4. rubella immune 5. diabetes- bs WNL 6. suspected triple I- s/p 24 hours antibiotics, afebrile 7. acute on chronic anemia secondary to acute blood loss from PPH due to atony- recheck in 4 hours. given IV venofer
[2020-01-01] MEDS: oxyCODONE 5 MG Tablet PO ×3 (08:30→20:57)
[2020-01-01] MEDS: Senna/Docusate Sodium 1 Tablet PO (08:31)
[2020-01-01] MEDS: 0.9% Saline Lock 10 ML Syringe IV ×3 (09:12→23:58)
[2020-01-01 11:08] LABS: Hematocrit 22.4 % (37-47); Hemoglobin 7.2 g/dL (12.0-15.0); Mean Corp Hgb Conc 32.1 g/dL (32-36); Mean Corpuscular Hgb 28.8 pg (27.0-32.0); Mean Corpuscular Volume 89.6 fL (81-99); Platelet Count 147 K/mm3 (150-450); RBC Distribution Width CV 15.8 % (11.6-14.6); RBC Distribution Width SD 49.1 fl (35.1-43.9); White Blood Count 13.4 K/mm3 (4.4-11.0)
[2020-01-01] MEDS: Prenatal Vits Tablet 1 TABLET PO (12:48)
--- NOTE | 2020-01-01 18:57 | NURSING ---
1850 Pulse rechecked radial rate 118. In SCN, states the pain med helped a lot and she feels better.
[2020-01-02 01:30] VITALS: BP 120/74; PULSE 94; RESP 16; TEMP 36.9
--- NOTE | 2020-01-02 02:49 | DCINST_ITS ---
Discharge Diet: No Restrictions Discharge Activity: May Not Drive - for 2 weeks, May not drive while taking narcotic pain medications., May Shower, May Take a Tub Bath - in 7 days May resume sexual activity in: 4-6 weeks Lifting Restrictions: 20 pounds Additional Activity Instructions:: Nothing in the vagina for 4-6 weeks. You may return to work/school in 6 weeks. Call your doctor if your incision/area has: Continuous Slow Oozing, Sudden Increased Bleeding, Increased Pain/ Swelling, Increased Redness, Foul Smelling Discharge Call your doctor if you observe: Fever of 101 or Higher, Using more than one pad per hour - for 2 hours Suture Line Care: Avoid Pulling/Pushing, Avoid Pinching/Bending Cleanse incision/area with: Keep Dressing Clean & Dry Additional Instructions: If you experience any of the following, contact your healthcare provider. * Bleeding that soaks a pad every hour for 2 hours * Fever 100.4 or higher * Unrelieved incision or abdominal pain * Swelling, redness, discharge or bleeding from your incision or episiotomy site * Your incision begins to separate * Problems urinating (including inability to urinate or burning while urinating). * Visual changes * Severe headache * Flu-like symptoms * Pain or redness in one of both of your breasts * Pain, warmth, tenderness or swelling in your legs, especially the calf area * Frequent nausea and vomiting * Symptoms of depression or anxiety If you experience any of the following, call 911 or go to the nearest Emergency Room. * Chest pain * Problems breathing * Seizure activity * Partial or complete paralysis of a body part, slurred speech, weakness or drooping of the face, or a sudden inability to walk or hold your balance Allergies/Adverse Reactions: Allergies No Known Allergies Allergy (Verified 12/29/19 20:20) Medications to take at Discharge Vits [Prenatabs FA] 1 tab PO DAILY 12/16/19 Naproxen [Naprosyn] 250 - 500 mg PO Q8H PRN PRN #30 tab 01/02/20 Oxycodone HCl/Acetaminophen [Percocet 5-325] 1 - 2 tablet PO Q6H PRN PRN 7 Days #15 tablet 01/02/20 The following prescriptions were given: Naproxen [Naprosyn] 250 - 500 mg PO Q8H PRN PRN #30 tab PRN Reason: MILD PAIN Transmission Status: Pending to [facility] Oxycodone HCl/Acetaminophen [Percocet 5-325] 1 - 2 tablet PO Q6H PRN PRN 7 Days #15 tablet PRN Reason: Pain Transmission Status: Sent to [facility] Follow-Up: Call to make an appointment with your doctor for an incision check in 1-2 weeks. You will also need a 6 week post- follow up appointment. Test results from this visit will be discussed in further detail at your follow- up appointment, if applicable. Please Follow Up With: Nai Kramer MD - Call to make an appointment for an incision check in 1-2 [phone] When: You will need a post- check in 6 weeks. Primary Care Physician: Care Physician,No Primary [Primary Care Provider] -
--- NOTE | 2020-01-02 02:49 | PCM.PN.OB ---
Subjective: due to COVID19- rounds completed via telephone with nursing staff, patient is doing well no complaints pain controlled no CP SOB N V ambulating well tolerating po lochia moderate, going well - Physical Exam Vitals/I&O's: Vital Signs Temp Pulse Resp BP Pulse Ox 97.9 F 100 18 126/79 H 97 01/01/20 21:00 01/01/20 21:00 01/01/20 21:00 01/01/20 21:00 01/01/20 05:38 Oxygen Flow Rate (L/min) 2 Oxygen Delivery Method Room Air Weight: 166 lb Body Mass Index (BMI) 30.3 Intake and Output for Last 24 Hours 12/31/19 01/01/20 01/02/20 23:59 23:59 23:59 Intake Total 4395.68 / 4395.68 776.51 / 776.51 Output Total 1900 / 1900 450 / 450 Balance 2495.68 / 2495.68 326.51 / 326.51 General: Alert, Oriented x3 Laboratory Results 01/01/20 04:12: POC Glucose 70 01/01/20 05:30: WBC 13.7 H, RBC 2.64 L, Hgb 7.5 L, Hct 24.0 L, MCV 90.9, MCH 28.4, MCHC 31.3 L, RDW Std Deviation 48.5 H, RDW Coeff of Brandon 15.7 H, Plt Count 146 L, MPV 11.3 01/01/20 10:55: WBC 13.4 H, RBC 2.50 L, Hgb 7.2 L, Hct 22.4 L, MCV 89.6, MCH 28.8, MCHC 32.1, RDW Std Deviation 49.1 H, RDW Coeff of Brandon 15.8 H, Plt Count 147 L, MPV 11.0 Current Medications Acetaminophen (Tylenol) 1,000 mg PO Q8H PRN PRN Reason: Pain Score 1-3/10 Last Admin: 12/31/19 11:48 Dose: 1,000 mg Documented by: Bisacodyl (Dulcolax) 10 mg RECTAL UD PRN PRN Reason: If no BM Hydrocortisone (Hytone) 1 applic TOPICAL TID PRN PRN; Protocol PRN Reason: Discomfort Naloxone HCl 4 mg/ Dextrose 504 mls @ 0 mls/hr IV .Q0M PRN; Protocol PRN Reason: Respiratory depression Ketorolac Tromethamine (Toradol (Bkc)) 30 mg IV Q6 [facility] Stop: 01/02/20 06:01 Last Admin: 01/01/20 23:57 Dose: 30 mg Documented by: Methylergonovine Maleate (Methergine) 0.2 mg IM X1 PRN PRN Reason: Uterine Atony Last Admin: 12/31/19 10:49 Dose: 0.2 mg Documented by: Naloxone HCl (Narcan) 0.02 mg IV Q1M PRN PRN Reason: RR <10 and pt unresponsive Naproxen (Naprosyn) 250 - 500 mg PO Q8H PRN PRN PRN Reason: Pain Score 1-3/10 Ondansetron HCl (Zofran) 4 mg IV Q4H PRN PRN PRN Reason: Nausea Last Admin: 12/31/19 11:44 Dose: 4 mg Documented by: Oxycodone HCl (Oxyir) 5 - 10 mg PO Q4H PRN PRN PRN Reason: Pain Score 4-10/10 Last Admin: 01/01/20 20:57 Dose: 5 mg Documented by: Multivit/Folic Acid/Iron (Prenatabs Fa) 1 tablet PO DAILY@1200 DIEGO Last Admin: 01/01/20 12:48 Dose: 1 tablet Documented by: Prochlorperazine Edisylate (Compazine Iv) 10 mg IV Q6H PRN PRN PRN Reason: NAUSEA Senna/Docusate Sodium (Senokot-S, Alina-Colace) 0 tablet PO DAILY PRN PRN Reason: Constipation Last Admin: 01/01/20 08:31 Dose: 2 tablet Documented by: Simethicone (Mylicon) 80 mg PO PCHS PRN PRN Reason: Indigestion/stomach pain Last Admin: 01/01/20 08:31 Dose: 80 mg Documented by: Sodium Chloride () 5 - 15 ml IV UD PRN PRN Reason: SALINE FLUSH Last Admin: 01/01/20 23:58 Dose: 10 ml Documented by: Medical Necessity - Tobacco Use Smoking Status: Never smoker Assessment/Plan All Active Problems (Last Reviewed 12/27/19 @ 13:57 by Jacquie L Alfredo) Anemia affecting (Acute) Gestational diabetes (Acute) LGSIL on Pap smear of cervix (Acute) (Acute) Supervision of normal first (Acute) s/p LTCS PPD # 2 1. routine post care 2. breast feeding- support given 3. rh positive 4. rubella immune 5. diabetes- bs WNL 6. suspected triple I- s/p 24 hours antibiotics, afebrile 7. acute on chronic anemia secondary to acute blood loss from PPH due to atony- stable
[2020-01-02] MEDS: oxyCODONE 5 MG Tablet PO ×3 (03:02→22:18)
[2020-01-02] MEDS: 0.9% Saline Lock 10 ML Syringe IV (06:07)
[2020-01-02] MEDS: Ketorolac 30 MG/ML Syringe IV (06:07)
[2020-01-02] MEDS: Senna/Docusate Sodium 1 Tablet PO (08:56)
[2020-01-02 08:59] VITALS: BP 131/80; PULSE 89; RESP 18; TEMP 36.9; O2SAT 98
[2020-01-02] MEDS: Naproxen 250 MG Tablet PO ×2 (12:03→20:33)
[2020-01-02] MEDS: Prenatal Vits Tablet 1 TABLET PO (12:04)
[2020-01-02 13:55] LABS: Bedside Glucose 67 mg/dL (70-110)
[2020-01-02 14:00] VITALS: BP 135/71; PULSE 100; RESP 18; TEMP 36.7
[2020-01-02 14:22] LABS: Absolute Lymphocyte Count 1.99 X10^3/uL (0.83-4.51); Absolute Neutrophil Count 6.7 X10^3/uL (2.0-7.7); Basophil# 0.02 X10^3/uL; Basophil% 0.2 % (0-1); Eosinophil# 0.07 X10^3/uL; Eosinophils% 0.7 % (0-5); Hematocrit 22.2 % (37-47); Hemoglobin 7.1 g/dL (12.0-15.0); Lymphocyte # 1.99 X10^3/ul (4.0); Lymphocyte % 21.1 % (19-41); Mean Corpuscular Hgb 28.9 pg (27.0-32.0); Mean Corpuscular Volume 90.2 fL (81-99); Mean Platelet Vol. 10.5 fl (6.2-12.0); Monocyte# 0.48 X10^3/uL; Monocyte% 5.1 % (0-10); NRBC Flagged by Analyzer 0 % (0-5); Neutrophil # 6.66 X10^3/uL (2.7-7.7); Neutrophil % 70.9 % (47-70); Platelet Count 172 K/mm3 (150-450); RBC Distribution Width CV 15.7 % (11.6-14.6); RBC Distribution Width SD 50.4 fl (35.1-43.9); Red Blood Count 2.46 M/mm3 (4.2-5.4); White Blood Count 9.4 K/mm3 (4.4-11.0)
[2020-01-02 18:00] VITALS: TEMP 37
[2020-01-02] MEDS: Acetaminophen 500 MG Tablet 1000 MG PO (18:35)
[2020-01-02 20:20] VITALS: BP 136/86; PULSE 84; RESP 16; TEMP 37.1; O2SAT 97
[2020-01-03 01:00] VITALS: BP 123/70; PULSE 72; RESP 16; TEMP 36.7
[2020-01-03] MEDS: Acetaminophen 500 MG Tablet 1000 MG PO (02:32)
[2020-01-03] MEDS: Naproxen 250 MG Tablet PO (05:29)
--- NOTE | 2020-01-03 07:17 | PCM.PN.OB ---
Subjective: doing well no complaints pain controlled no CP SOB N V ambulating well tolerating po lochia moderate, going well - Physical Exam Vitals/I&O's: Vital Signs Temp Pulse Resp BP Pulse Ox 98.1 F 72 16 123/70 H 97 01/03/20 01:00 01/03/20 01:00 01/03/20 01:00 01/03/20 01:00 01/02/20 20:20 Oxygen Flow Rate (L/min) 2 Oxygen Delivery Method Room Air Weight: 166 lb Body Mass Index (BMI) 30.3 Intake and Output for Last 24 Hours 01/01/20 01/02/20 01/03/20 23:59 23:59 23:59 Intake Total 776.51 / 776.51 Output Total 450 / 450 Balance 326.51 / 326.51 General: Alert, Oriented x3 Laboratory Results 01/02/20 13:42: POC Glucose 67 L 01/02/20 14:15: WBC 9.4, RBC 2.46 L, Hgb 7.1 L, Hct 22.2 L, MCV 90.2, MCH 28.9, MCHC 32.0, RDW Std Deviation 50.4 H, RDW Coeff of Brandon 15.7 H, Plt Count 172, MPV 10.5, Immature Gran % (Auto) 2.000 H, Neut % (Auto) 70.9 H, Lymph % (Auto) 21.1, Armstrong % (Auto) 5.1, Eos % (Auto) 0.7, Baso % (Auto) 0.2, Absolute Neuts (auto) 6.7, Absolute Lymphs (auto) 1.99, Nucleated RBC % 0 Current Medications Acetaminophen (Tylenol) 1,000 mg PO Q8H PRN PRN Reason: Pain Score 1-3/10 Last Admin: 01/03/20 02:32 Dose: 1,000 mg Documented by: Bisacodyl (Dulcolax) 10 mg RECTAL UD PRN PRN Reason: If no BM Hydrocortisone (Hytone) 1 applic TOPICAL TID PRN PRN; Protocol PRN Reason: Discomfort Naloxone HCl 4 mg/ Dextrose 504 mls @ 0 mls/hr IV .Q0M PRN; Protocol PRN Reason: Respiratory depression Methylergonovine Maleate (Methergine) 0.2 mg IM X1 PRN PRN Reason: Uterine Atony Last Admin: 12/31/19 10:49 Dose: 0.2 mg Documented by: Naloxone HCl (Narcan) 0.02 mg IV Q1M PRN PRN Reason: RR <10 and pt unresponsive Naproxen (Naprosyn) 250 - 500 mg PO Q8H PRN PRN PRN Reason: Pain Score 1-3/10 Last Admin: 01/03/20 05:29 Dose: 500 mg Documented by: Ondansetron HCl (Zofran) 4 mg IV Q4H PRN PRN PRN Reason: Nausea Last Admin: 12/31/19 11:44 Dose: 4 mg Documented by: Oxycodone HCl (Oxyir) 5 - 10 mg PO Q4H PRN PRN PRN Reason: Pain Score 4-10/10 Last Admin: 01/02/20 22:18 Dose: 5 mg Documented by: Multivit/Folic Acid/Iron (Prenatabs Fa) 1 tablet PO DAILY@1200 DIEGO Last Admin: 01/02/20 12:04 Dose: 1 tablet Documented by: Prochlorperazine Edisylate (Compazine Iv) 10 mg IV Q6H PRN PRN PRN Reason: NAUSEA Senna/Docusate Sodium (Senokot-S, Alina-Colace) 0 tablet PO DAILY PRN PRN Reason: Constipation Last Admin: 01/02/20 08:56 Dose: 2 tablet Documented by: Simethicone (Mylicon) 80 mg PO PCHS PRN PRN Reason: Indigestion/stomach pain Last Admin: 01/03/20 00:59 Dose: 80 mg Documented by: Medical Necessity - Tobacco Use Smoking Status: Never smoker Assessment/Plan All Active Problems (Last Reviewed 12/27/19 @ 13:57 by Jacquie Fuentes) Anemia affecting (Acute) Gestational diabetes (Acute) LGSIL on Pap smear of cervix (Acute) (Acute) Supervision of normal first (Acute) s/p LTCS PPD # 3 1. routine post care 2. breast feeding- support given 3. rh positive 4. rubella immune 5. diabetes- bs WNL 6. suspected triple I- s/p 24 hours antibiotics, afebrile 7. acute on chronic anemia secondary to acute blood loss from PPH due to atony- stable
[2020-01-03] MEDS: oxyCODONE 5 MG Tablet PO (07:59)
[2020-01-03 09:30] VITALS: BP 132/68; PULSE 95; RESP 16; TEMP 36.8; O2SAT 98
--- NOTE | 2020-01-05 08:22 | DS.PCM_ITS ---
Discharge Date and Diagnosis Date of Admission: 12/29/19 Date of Discharge: 01/03/20 Hospital Course and Treatment Consultations 12/29/19 18:56 Consult: Anesthesia Routine Comment: Reason For Exam: Labor Operations: - - Summary of Care Provided: The patient is a 24 year old F present sfor IOL secondary to GDM that had decreased in control. she was induced with cytotec, pitocin, and a guthrie bulb and proceeded to experience an arrest of dilation at 9-10 cm. she also had suspected triple I near delivery and was started on antibiotics. she underwent a primary for suspected CPD and experieneced atony with hemorrhage and acute on chornic anemia, counts were stable and didn't require transfusion. she had been given IV venofer recently x 2. patient had a routine recovery with 24 hours of antibtiotics and remained afebrile, met discharge criteria on POD 3 and was discharged to home - Physical Exam Vitals/I&O's: Vital Signs Temp Pulse Resp BP Pulse Ox 98.3 F 95 16 132/68 H 98 01/03/20 09:30 01/03/20 09:30 01/03/20 09:30 01/03/20 09:30 01/03/20 09:30 Oxygen Flow Rate (L/min) 2 Oxygen Delivery Method Room Air Weight: 166 lb Body Mass Index (BMI) 30.3 Discharge Diet: No Restrictions Discharge Activity: May Not Drive - for 2 weeks, May not drive while taking narcotic pain medications., May Shower, May Take a Tub Bath - in 7 days May resume sexual activity in: 4-6 weeks Additional Activity Instructions:: Nothing in the vagina for 4-6 weeks. You may return to work/school in 6 weeks. Call your doctor if your incision/area has: Continuous Slow Oozing, Sudden Increased Bleeding, Increased Pain/ Swelling, Increased Redness, Foul Smelling Discharge Call your doctor if you observe: Fever of 101 or Higher, Using more than one pad per hour - for 2 hours Suture Line Care: Avoid Pulling/Pushing, Avoid Pinching/Bending Cleanse incision/area with: Keep Dressing Clean & Dry Home Medications: Medications to take at Discharge Vits [Prenatabs FA] 1 tab PO DAILY 12/16/19 Naproxen [Naprosyn] 250 - 500 mg PO Q8H PRN PRN #30 tab 01/02/20 Oxycodone HCl/Acetaminophen [Percocet 5-325] 1 - 2 tab PO Q6H PRN PRN 7 Days #15 tab 01/02/20 Following Prescrptions Were Given to Patient: Naproxen [Naprosyn] 250 - 500 mg PO Q8H PRN PRN #30 tab PRN Reason: MILD PAIN Transmission Status: Received by [facility] Oxycodone HCl/Acetaminophen [Percocet 5-325] 1 - 2 tab PO Q6H PRN PRN 7 Days #15 tab PRN Reason: Pain Transmission Status: Received by [facility] Primary Care Physician: Care Physician,No Primary [Primary Care Provider] - Please Follow Up With: Nai Kramer MD - Call to make an appointment for an incision check in 1-2 [phone] When: You will need a post- check in 6 weeks. Medical Necessity - Tobacco Use Smoking Status: Never smoker Meaningful Use Info Meaningful Use Diagnoses (Choose all that apply): None applicable
== END 2020-01-03 13:05 | disposition home or self-care (01) | DRG 786 ==
PROVIDERS: Admitting Provider Obstetrics & Gynecology; Referring Provider Obstetrics & Gynecology; Visit Provider Obstetrics & Gynecology
DX: O62.1 Secondary uterine inertia (principal); O41.1230 Chorioamnionitis, third trimester, not applicable or unspecified; D62 Acute posthemorrhagic anemia; O72.1 Other immediate postpartum hemorrhage; O24.420 Gestational diabetes mellitus in childbirth, diet controlled; O33.9 Maternal care for disproportion, unspecified; O99.02 Anemia complicating childbirth; D64.9 Anemia, unspecified; Z37.0 Single live birth; Z3A.39 39 weeks gestation of pregnancy
CPT/HCPCS: 36415; 59025; 59050; 82962; 85025; 85027; 86850; 86900; 86901; 99218; J1756; J7120; A4216; G0378; J0290; J2405; J3490

== ENCOUNTER → 2020-02-28 09:37 | Outpatient (CLI) | payer OTHER, SELFPAY ==
[2020-02-09 10:06] VITALS: BMI 30.3
[2020-02-28 10:14] LABS: Absolute Lymphocyte Count 2.28 X10^3/uL (0.83-4.51); Absolute Neutrophil Count 3.7 X10^3/uL (2.0-7.7); Basophil# 0.04 X10^3/uL; Basophil% 0.6 % (0-1); Eosinophil# 0.07 X10^3/uL; Eosinophils% 1.1 % (0-5); Hematocrit 36.2 % (37-47); Hemoglobin 11.2 g/dL (12.0-15.0); Lymphocyte # 2.28 X10^3/ul (4.0); Lymphocyte % 34.2 % (19-41); Mean Corp Hgb Conc 30.9 g/dL (32-36); Mean Corpuscular Hgb 28.1 pg (27.0-32.0); Mean Platelet Vol. 10.6 fl (6.2-12.0); Monocyte# 0.58 X10^3/uL; Monocyte% 8.7 % (0-10); NRBC Flagged by Analyzer 0 % (0-5); Neutrophil # 3.67 X10^3/uL (2.7-7.7); Neutrophil % 55.1 % (47-70); Platelet Count 256 K/mm3 (150-450); RBC Distribution Width CV 13.9 % (11.6-14.6); RBC Distribution Width SD 47.4 fl (35.1-43.9); Red Blood Count 3.98 M/mm3 (4.2-5.4); White Blood Count 6.7 K/mm3 (4.4-11.0)
[2020-02-28 13:05] LABS: Glucose 2 Hour Postprandial 128 mg/dL (<140)
== END ==
PROVIDERS: Nurse Practitioner Women's Health; Referring Provider Obstetrics & Gynecology; Visit Provider Obstetrics & Gynecology
DX: O99.019 Anemia complicating pregnancy, unspecified trimester (principal); Z3A.00 Weeks of gestation of pregnancy not specified; O24.419 Gestational diabetes mellitus in pregnancy, unspecified control
CPT/HCPCS: 36415; 82950; 85025

== ENCOUNTER → 2020-11-13 16:31 | Outpatient (CLI) | payer BC, SELFPAY ==
[2020-11-13 08:57] VITALS: BMI 24.1
[2020-11-17 11:23] LABS: HPV Reflexed? NOT INDICATED
== END ==
PROVIDERS: Referring Provider Nurse Practitioner Women's Health; Visit Provider Nurse Practitioner Women's Health
DX: Z12.4 Encounter for screening for malignant neoplasm of cervix (principal)
CPT/HCPCS: 88175; G0145

== ENCOUNTER 2021-08-28 16:34 | Emergency (ER) | payer OTHER, SELFPAY ==
[2021-08-28 16:35] VITALS: BP 108/66; PULSE 95; RESP 18; TEMP 36.9; O2SAT 97; BMI 23.8
--- NOTE | 2021-08-28 19:10 | EKG12_ITS ---
Test Reason : DIZZY Blood Pressure : / mmHG Vent. Rate : 079 BPM Atrial Rate : 079 BPM P-R Int : 158 ms QRS Dur : 074 ms QT Int : 356 ms P-R-T Axes : 049 046 026 degrees QTc Int : 408 ms Normal sinus rhythm with sinus arrhythmia Normal ECG Confirmed by KRISTINE JIANG, MITUL ([id number]), newspaper managing editor BHAVESH EPPERSON ([id number]) on 08/30/2021 8:23:45 AM Referred By: MIGUEL A Confirmed By:MIUTL CARMONA MD
[2021-08-28 19:19] VITALS: BP 104/60; BP 107/48; BP 120/58; PULSE 80; PULSE 81; PULSE 87
--- NOTE | 2021-08-28 19:19 | EX.ED.DYSGE1 ---
HPI History of Present Illness Chief Complaint: Dizziness Narrative Narrative: 26-year-old female presenting with lightheadedness. She states this has been going on for a few days. She is currently 7 weeks . She has not had an obstetrics appointment yet. She did make an appointment to be seen. She has a prescription for something for nausea at home but was waiting in line today and was too nauseous to wait. She came to the ER. She states that she has been feeling like she might faint. For this reason she has been staying home from work and been cautious carrying her child. She has not actually fainted. She denies any cardiac history. There is no history of sudden cardiac in her family. Patient states her last she had just notable diabetes toward the end of her . She also had anemia. Patient is denying chest pain and shortness of breath. She has no abdominal pain. No dysuria or hematuria. No vaginal discharge or bleeding. PFSH PFSH Medical History Acid reflux depression Home Medications esomeprazole magnesium 20 mg capsule,delayed release 20 mg PO DAILY 11/13/20 [History Last Taken Unknown] citalopram 20 mg tablet 20 mg PO DAILY #90 tab 12/11/20 [Rx Last Taken Unknown] promethazine 12.5 mg tablet 12.5 mg PO Q6H PRN #60 tab 08/27/21 [Rx Last Taken Unknown] ondansetron 4 mg PO Q8H PRN PRN #10 tab 08/28/21 [Rx Last Taken Unknown] Allergy/AdvReac Type Severity Reaction Status Date / Time No Known Allergies Allergy Verified 08/28/21 16:36 Family History Mother Cervical cancer Social History Smoking Status: Never smoker alcohol intake: never substance use type: does not use caffeine: No what type of physical activity do you participate in: walking frequency: 3-4 times per week seatbelt use: always do you feel safe at home: Yes additional social history: Fjkvqljjb[employer]ger[employer] at [employer] Patient works at [employer] ROS ED Constitutional Constitutional ED: Reports other Details: Lightheadedness ; Denies chills or fever(s) ENT ENT ED: Denies rhinorrhea or sore throat Cardiovascular Cardiovascular: Denies chest pain or palpitations Respiratory/Chest Respiratory/Chest: Denies cough or dyspnea Gastrointestinal Gastrointestinal: Reports nausea; Denies abdominal pain Genitourinary Genitourinary ED: Denies dysuria or hematuria Musculoskeletal Musculoskeletal: Denies myalgias Integumentary Denies Abrasions or rash Neurologic Neurologic: Denies headache(s) or paresthesias EXAM Physical Exam Const Vital Signs: 08/28/21 16:35 08/28/21 19:19 Temperature 98.5 F Temperature Source Temporal Pulse Rate 95 Pulse Rate [Lying] 80 Pulse Rate [Sitting] 81 Pulse Rate [Standing] 87 Respiratory Rate 18 Blood Pressure 108/66 Blood Pressure [Lying] 107/48 L Blood Pressure [Sitting] 120/58 L Blood Pressure [Standing] 104/60 Blood Pressure Mean 80 Blood Pressure Mean [Lying] 67 Blood Pressure Mean [Sitting] 78 Blood Pressure Mean [Standing] 74 Pulse Ox 97 Oxygen Delivery Method Room Air Positive well nourished General Appearance ED: Negative for pallor HEENT Reports moist mucous membranes Negative for trauma Eyes PERRL and EOMs intact bilaterally Neck no lymphadenopathy and supple Cardio regular rate and regular rhythm GI normal to inspection, nondistended, normoactive bowel sounds Neuro oriented x3, CN's II-XII intact bilaterally and no sensory deficits noted Sensorium / Orientation: alert Motor Exam: strength 5/5 throughout Skin no rashes or lesions noted General Skin Exam: Negative for jaundice or pallor MDM MDM MDM Narrative Medical decision making narrative: Patient presented with lightheadedness. She is currently 7 weeks . Will check orthostatic vital signs and basic lab work as well as urinalysis. Patient will be given Zofran and IV fluids. Orthostatic vital signs are negative. CBC and CMP are normal. Urinalysis is negative for infection. Patient was given a liter of IV fluids and Zofran and feels improved with the Zofran. She requested prescription of this for home. 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 Impression: 1. Lightheadedness Lab Data Attestation: I reviewed the patient's lab results. Labs: Laboratory Results - last 24 hr 08/28/21 08/28/21 08/28/21 19:15 19:15 20:25 WBC 9.6 RBC 4.39 Hgb 13.2 Hct 40.2 MCV 91.6 MCH 30.1 MCHC 32.8 RDW Std Deviation 40.6 RDW Coeff of Brandon 12.0 Plt Count 274 MPV 10.0 Immature Gran % (Auto) 0.300 Neut % (Auto) 68.1 Lymph % (Auto) 24.0 Heard % (Auto) 6.8 Eos % (Auto) 0.4 Baso % (Auto) 0.4 Absolute Neuts (auto) 6.5 Absolute Lymphs (auto) 2.30 Nucleated RBC % 0 Sodium 139 Potassium 3.7 Chloride 107 Carbon Dioxide 24.0 Anion Gap 8 BUN 8 Creatinine 0.55 Estim Creat Clear Calc 123.67 Est GFR (MDRD) Af Amer 171 Est GFR (MDRD) Non-Af 141 BUN/Creatinine Ratio 14.4 Glucose 94 Calcium 9.2 Total Bilirubin 0.20 AST 12 L ALT 17 Alkaline Phosphatase 68 Total Protein 8.1 Albumin 3.7 Globulin 4.4 H Albumin/Globulin Ratio 0.8 L Urine Color Yellow Urine Clarity Sl. Cloudy Urine pH 7.0 Ur Specific [place] 1.010 Urine Protein Negative Urine Glucose (UA) Normal Urine Ketones Negative Urine Occult Blood 25 H Urine Nitrite Negative Urine Bilirubin Negative Urine Urobilinogen Normal Ur Leukocyte Esterase Negative Urine RBC 0-5 SEEN Urine WBC 0 SEEN Ur Squamous Epith Cells 0-5 SEEN Urine Bacteria 0 SEEN Urine Mucus 0 SEEN Discharge Plan Triage Chief Complaint: Dizziness ED Provider: Kevin Salazar Dx/Rx/DC Orders Instructions: ED Dizziness, Uncertain Cause Prescriptions: New ondansetron 4 mg tablet,disintegrating 4 mg PO Q8H PRN PRN (Reason: Nausea) Qty: 10 RF: 0 No Action esomeprazole magnesium [Nexium] 20 mg capsule,delayed release(DR/EC) 20 mg PO DAILY RF: 0 citalopram [Celexa] 20 mg tablet 20 mg PO DAILY Qty: 90 RF: 3 promethazine 12.5 mg tablet 12.5 mg PO Q6H PRN (Reason: nausea and vomiting) Qty: 60 RF: 2 Primary Care Provider: Care Physician,No Primary Referrals: Care Physician,No Primary [Primary Care Provider] - Disposition Disposition: Home, Self Care
[2021-08-28] MEDS: Ondansetron 4 MG/2 ML Vial IV (19:22)
[2021-08-28 19:24] LABS: Absolute Neutrophil Count 6.5 X10^3/uL (2.0-7.7); Basophil# 0.04 X10^3/uL; Basophil% 0.4 % (0-1); Eosinophil# 0.04 X10^3/uL; Eosinophils% 0.4 % (0-5); Hematocrit 40.2 % (37-47); Hemoglobin 13.2 g/dL (12.0-15.0); Mean Corp Hgb Conc 32.8 g/dL (32-36); Mean Corpuscular Hgb 30.1 pg (27.0-32.0); Mean Corpuscular Volume 91.6 fL (81-99); Monocyte# 0.65 X10^3/uL; Monocyte% 6.8 % (0-10); NRBC Flagged by Analyzer 0 % (0-5); Neutrophil # 6.52 X10^3/uL (2.7-7.7); Neutrophil % 68.1 % (47-70); Platelet Count 274 K/mm3 (150-450); RBC Distribution Width SD 40.6 fl (35.1-43.9); Red Blood Count 4.39 M/mm3 (4.2-5.4); White Blood Count 9.6 K/mm3 (4.4-11.0)
[2021-08-28] MEDS: 0.9% Normal Saline 1,000 ML 1000 ML IV (19:31)
[2021-08-28 19:43] LABS: ALB/GLOB Ratio 0.8 RATIO (0.9-2.4); AST(SGOT) 12 U/L (15-37); Alanine Aminotransfer ALT/SGPT 17 U/L (13-56); Albumin, Serum 3.7 g/dL (3.2-5.0); Alkaline Phosphatase 68 U/L (45-117); Anion Gap 8 (5-15); BUN 8 mg/dL (7-18); BUN/Creat Ratio 14.4 RATIO (10-20); Calcium,Total 9.2 mg/dL (8.5-10.1); Chloride 107 mmol/L (98-107); Creatinine, Serum 0.55 mg/dL (0.55-1.02); EST Glomerular Filtration Rate 141 mL/min (>60); Est Glom Filt Rate - Afr Amer 171 mL/min (>60); Estimated Creatinine Clearance 123.67 ml/min; Globulin 4.4 g/dL (2.2-4.2); Glucose 94 mg/dL (74-106); Potassium 3.7 mmol/L (3.5-5.1); Protein, Total 8.1 g/dL (6.4-8.2); Sodium Level 139 mmol/L (136-145)
[2021-08-28 20:42] LABS: Bacteria 0 SEEN /hpf (None Seen); Mucous, Urine 0 SEEN /hpf (<or=2+); White Blood Cells 0 SEEN /hpf (0-5)
[2021-08-28 20:55] LABS: Color, Urine Yellow (Yellow); Glucose, Dipstick Normal (Normal); Ketone-Dipstick Negative (Negative); Leukocyte Esterase-Dipstick Negative /ul (Negative); Nitrite-Dipstick Negative (Negative); Occult Blood-Urine 25 /ul (Negative); Protein-Dipstick Negative (Negative); Urine Bilirubin Dipstick Negative (Negative); Urine Clarity Sl. Cloudy (Clear); Urine Urobilinogen Normal (Normal)
[2021-08-28 21:05] LABS: Red Blood Cells-Urine 0-5 SEEN /hpf (0-5); Squamous Epithelial Cells - UA 0-5 SEEN /hpf (5-10)
[2021-08-28 21:51] VITALS: BP 92/56; PULSE 81
== END 2021-08-28 21:54 | disposition home or self-care (01) ==
PROVIDERS: Emergency Provider Student in an Organized Health Care Education/Training Program
DX: O26.891 Other specified pregnancy related conditions, first trimester (principal); R42 Dizziness and giddiness; O99.611 Diseases of the digestive system complicating pregnancy, first trimester; O24.111 Pre-existing type 2 diabetes mellitus, in pregnancy, first trimester; Z3A.01 Less than 8 weeks gestation of pregnancy; K21.9 Gastro-esophageal reflux disease without esophagitis
CPT/HCPCS: 80053; 81001; 85025; 93005; 96361; 96374; 99283; J7030; J2405

== ENCOUNTER → 2021-09-14 17:07 | Outpatient (CLI) | payer OTHER, SELFPAY | PROVIDERS: Visit Provider Obstetrics & Gynecology | DX: Z34.80 Encounter for supervision of other normal pregnancy, unspecified trimester (principal) | CPT/HCPCS: 87086; 87088 ==

== ENCOUNTER → 2021-09-24 08:49 | Outpatient (CLI) | payer OTHER, SELFPAY ==
[2021-09-24 09:22] LABS: Absolute Lymphocyte Count 1.75 X10^3/uL (0.83-4.51); Absolute Neutrophil Count 5.3 X10^3/uL (2.0-7.7); Basophil# 0.02 X10^3/uL; Basophil% 0.3 % (0-1); Eosinophil# 0.03 X10^3/uL; Eosinophils% 0.4 % (0-5); Hematocrit 35.5 % (37-47); Hemoglobin 11.9 g/dL (12.0-15.0); Lymphocyte # 1.75 X10^3/ul (0.83-4.51); Lymphocyte % 22.6 % (19-41); Mean Corp Hgb Conc 33.5 g/dL (32-36); Mean Corpuscular Hgb 30.3 pg (27.0-32.0); Mean Corpuscular Volume 90.3 fL (81-99); Mean Platelet Vol. 9.8 fl (6.2-12.0); Monocyte# 0.55 X10^3/uL; Monocyte% 7.1 % (0-10); NRBC Flagged by Analyzer 0 % (0-5); Neutrophil # 5.34 X10^3/uL (2.7-7.7); Platelet Count 249 K/mm3 (150-450); RBC Distribution Width CV 12.1 % (11.6-14.6); RBC Distribution Width SD 40.5 fl (35.1-43.9); Red Blood Count 3.93 M/mm3 (4.2-5.4); White Blood Count 7.7 K/mm3 (4.4-11.0)
[2021-09-24 09:32] LABS: Glucose Challenge Gest 1H 50g 167 mg/dL (70-140)
[2021-09-24 10:18] LABS: NATERA MAILED SPECIMEN
[2021-09-24 10:24] LABS: HIV - WCH Non-Reactive (Nonreactive); Hepatitis B Surface Antigen Non-Reactive (Nonreactive); Hepatitis C Antibody Non-Reactive (Nonreactive); Rubella IgG Reactive (Nonreactive); Syphilis Antibodies Non-reactive
== END ==
PROVIDERS: Referring Provider Obstetrics & Gynecology; Visit Provider Obstetrics & Gynecology
DX: Z34.81 Encounter for supervision of other normal pregnancy, first trimester (principal); Z31.430 Encounter of female for testing for genetic disease carrier status for procreative management
CPT/HCPCS: 36415; 82950; 85025; 86703; 86762; 86780; 86803; 86850; 86900; 86901; 87340

== ENCOUNTER 2021-11-26 08:37 | Outpatient (CLI) | payer OTHER, SELFPAY ==
[2021-11-26 09:44] LABS: Glucose GTT-Gestation. Fasting 92 mg/dL (<105)
[2021-11-26 11:47] LABS: Glucose GTT-Gestational 1 Hr 154 mg/dL (<190)
[2021-11-26 11:48] LABS: Glucose GTT-Gestational 2 Hr 131 mg/dL (<165)
[2021-11-26 12:57] LABS: Glucose GTT-Gestational 3 Hr 55 L (<145)
== END 2021-11-26 23:59 | disposition home or self-care (01) ==
PROVIDERS: Visit Provider Student in an Organized Health Care Education/Training Program
DX: O24.912 Unspecified diabetes mellitus in pregnancy, second trimester (principal); Z3A.00 Weeks of gestation of pregnancy not specified
CPT/HCPCS: 36415; 82951; 82952

== ENCOUNTER 2022-01-04 08:31 | Outpatient (CLI) | payer OTHER, SELFPAY ==
[2022-01-04 09:36] LABS: Glucose GTT-Gestation. Fasting 92 mg/dL (<105)
[2022-01-04 12:05] LABS: Glucose GTT-Gestational 1 Hr 202 mg/dL (<190)
[2022-01-04 12:07] LABS: Glucose GTT-Gestational 2 Hr 187 mg/dL (<165)
[2022-01-04 14:01] LABS: Glucose GTT-Gestational 3 Hr 91 L (<145)
== END 2022-01-04 23:59 | disposition home or self-care (01) ==
LOC: WOBLAB 08:46
PROVIDERS: Visit Provider Student in an Organized Health Care Education/Training Program
DX: Z34.83 Encounter for supervision of other normal pregnancy, third trimester (principal)
CPT/HCPCS: 36415; 82951; 82952

== ENCOUNTER → 2022-03-21 | Outpatient (CLI) | payer OTHER, SELFPAY | END | disposition home or self-care (01) | LOC: LABSPEC 16:10 | PROVIDERS: Visit Provider Student in an Organized Health Care Education/Training Program | DX: Z36.85 Encounter for antenatal screening for Streptococcus B (principal) | CPT/HCPCS: 87081 ==

== ENCOUNTER 2022-03-26 04:57 | Inpatient (IN) | payer OTHER, SELFPAY ==
[2022-03-26] VITALS (24 sets, daily range): BP systolic 99–120; BP diastolic 44–70; PULSE 68–93; RESP 14–18; TEMP 36.1–36.5; O2SAT 97–100; BMI 28.8
[2022-03-26] MEDS: Lactated Ringers 1,000 ML 999 ML IV ×2 (05:25→10:44)
[2022-03-26 05:40] LABS: Absolute Lymphocyte Count 1.67 X10^3/uL (0.83-4.51); Absolute Neutrophil Count 4.1 X10^3/uL (2.0-7.7); Basophil# 0.01 X10^3/uL; Basophil% 0.2 % (0-1); Eosinophil# 0.03 X10^3/uL; Eosinophils% 0.5 % (0-5); Hemoglobin 10.3 g/dL (12.0-15.0); Lymphocyte # 1.67 X10^3/ul (0.83-4.51); Lymphocyte % 26.4 % (19-41); Mean Corp Hgb Conc 32.2 g/dL (32-36); Mean Corpuscular Hgb 29.8 pg (27.0-32.0); Mean Corpuscular Volume 92.5 fL (81-99); Mean Platelet Vol. 10.4 fl (6.2-12.0); Monocyte# 0.47 X10^3/uL; Monocyte% 7.4 % (0-10); NRBC Flagged by Analyzer 0 % (0-5); Neutrophil # 4.11 X10^3/uL (2.7-7.7); Neutrophil % 64.9 % (47-70); Platelet Count 194 K/mm3 (150-450); RBC Distribution Width CV 13.6 % (11.6-14.6); RBC Distribution Width SD 46.2 fl (35.1-43.9); Red Blood Count 3.46 M/mm3 (4.2-5.4); White Blood Count 6.3 K/mm3 (4.4-11.0)
[2022-03-26 06:05] LABS: Bedside Glucose 104 mg/dL (74-106)
[2022-03-26] MEDS: Acetaminophen 500 MG Tablet 1000 MG PO ×3 (06:16→18:36)
[2022-03-26] MEDS: Lactated Ringers 1,000 ML 150 ML IV (06:23)
--- NOTE | 2022-03-26 07:04 | HP.PCM.OB_ITS ---
History and Physical Date of Admission: 03/26/22 HPI: 27-year-old G2, P1 at 37/0 weeks, KISHA 04/16/2022 by LMP, admitted for repeat section. Denies leaking of fluid, vaginal bleeding, contractions. Reports movement. Denies headache, vision changes, chest pain or shortness of breath, nausea or vomiting, fevers or chills, diarrhea or constipation. complicated by: Resolved growth restriction, concern for microcephaly (work-up negative by MFM), GDM A1 (well controlled), posterior placenta previa. 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 2020 G2: Current Medical history: 1. Depression Surgical history: 1. section Family history: Noncontributory Allergies: No known drug allergies Medication: 1. Celexa 2. vitamin Social: Denies tobacco, alcohol, drug use Review of system: Negative otherwise stated above Physical exam: Vitals: BP 117/68, HR 90, RR 18, Temp 97.6F, O2 sat 98% RA General: No acute distress HEENT: Normocephalic/atraumatic, PERRLA Cardiorespiratory: No increased effort Abdomen: Soft, nontender, gravid Extremities: No edema Neurologic: Cranial nerves II through XII grossly intact, no focal deficits Musculoskeletal: Muscle strength 5 out of 5 throughout all extremities heart rate: 145/mod rock/+accel/no decel Neshanic: quiet labs: HIV negative Hepatitis B/hepatitis C negative/negative Syphilis negative Rubella immune A positive GBS negative on 03/21 Labs today WBC 6.3, hemoglobin/hematocrit 10.3/32, platelet 194. COVID-negative. Glucose 104 Assessment/plan: 27-year-old G2, P1 at 37/0 weeks, KISHA 04/16/2022 by LMP, admitted for repeat section for placenta previa. complicated by: Resolved growth restriction, concern for microcephaly (work-up negative by MFM), GDM A1 (well controlled), posterior placenta previa. ?Admit to labor and delivery. Routine orders. ?GDM A1. Fasting blood sugar tomorrow morning. ?Last growth ultrasound estimated weight in the 14th percentile (on 03/05/22 1921 g 18%tile, AC 14%tile). ?Anemia of . History of hemorrhage last delivery, likely secondary to chorioamnionitis and prolonged labor. However will have tranexamic acid in OR, 2 units PRBCs on hold. Assessment & Plan Assessment/Plan (1) Placenta previa: (2) Gestational diabetes: (3) H/O section: (4) Depression:
[2022-03-26] MEDS: Sodium Citrate/Citric Acid 30 ML UDC PO (07:16)
[2022-03-26] MEDS: Cefazolin 2 GM in 0.9% Normal Saline 100 ML IV (07:41)
--- NOTE | 2022-03-26 08:45 | OP.PCM_ITS ---
Report of Operation Date of Procedure: 03/26/22 Pre-Operative Diagnosis: Farmer intrauterine . Gestational diabetes type A1, placenta previa Post-Operative Diagnosis: Farmer intrauterine . Gestational diabetes type A1, placenta previa Surgery/Procedure Performed:: Repeat low-transverse section Description of Surgical Findings:: Thickened subcutaneous tissue. rectus muscles. Omentum adhesed an teriorly left side of rectus. Vesicouterine peritoneum adhesions. Type of Anesthesia: Spinal Estimated Blood Loss (mL): 800 cc Fluids Replaced: 1200 cc Description of Procedure: Indications/risk/benefits: 27-year-old at 37/0 weeks admitted for repeat section for placenta previa and gestational diabetes type A1. All risk, benefits, alternatives discussed with patient. Risk include but are not limited to: Risk of bleeding to the point of transfusion, infection, injury to surrounding tissue including bowel/bladder, VTE, ICU admission. Patient aware and consented. Procedure: Patient taken to the operating room, spinal anesthesia placed. Patient placed in the supine position with a left lateral tilt. Prepped and draped in the usual sterile fashion. Pfannenstiel skin incision made through skin and underlying subcutaneous tissue. Fascia nicked on either side of the midline and extended bilaterally using Webb scissors. Jackelyn clamps used to grasp superior fascial edge which was tented up and underlying rectus muscles were dissected off bluntly and using Bovie. Jackelyn clamps moved to inferior fascial edge and underlying rectus muscles were dissected off bluntly and using Bovie. Rectus muscles noted to be inferiorly. Rectus muscles superiorly using hemostats. Peritoneum grasped with hemostat and incised using Metzenbaum scissors. Peritoneum entered and extended bluntly. Bladder blade placed. Vesicouterine peritoneum identified and bladder flap created using Metzenbaum scissors. Low transverse uterine incision made with scalpel, extended bluntly. Hand placed into the uterine cavity and head elevated to the level of the hysterotomy. With the assistance of gentle fundal pressure head delivered followed by body. No nuchal cord. Cord clamped and cut. Baby to nursing staff. Spontaneous delivery of placenta. Uterus exteriorized and cleared of all clots. Hysterotomy closed with a running locking stitch and a second horizontal imbricating stitch. Uterus replaced. Hemostatic with Cristopher. Rectus muscles reapproximated with horizontal mattress suture. Cristopher placed on muscle as well. Fascia closed with running stitch. Subcutaneous tissue reapproximated with interrupted stitch. Skin closed with running subcuticular stitch. Steri-Strips in place. At the end of the procedure all needle, lap, sponge counts correct x3. Apgars: 06/07 Urine output: Approximately 150 cc clear urine Complications None
[2022-03-26] MEDS: Oxytocin 30 units/NS 500 ml 30 UNITS/500 ML IV.SOLN 167 UNITS IV (08:52)
[2022-03-26] MEDS: Ketorolac 30 MG/ML Syringe IV ×3 (09:17→21:59)
[2022-03-26 09:20] LABS: Bedside Glucose 104 mg/dL (74-106)
[2022-03-26 10:29] LABS: Chlamydia Trachomatis by PCR Negative (Negative); Neisserai gonorrhoeae by PCR Negative (Negative); Probe Check PASS; Sample Adequacy Control PASS; Specimen Processing Control PASS
[2022-03-26] MEDS: Lactated Ringers 1,000 ML 100 ML IV (12:00)
[2022-03-26] MEDS: Ondansetron 4 MG/2 ML Vial IV (13:12)
[2022-03-26] MEDS: 0.9% Saline Lock 10 ML Syringe IV (22:03)
[2022-03-26] MEDS: Enoxaparin 40 MG/0.4 ML Syringe SC (22:03)
[2022-03-27] VITALS (7 sets, daily range): BP systolic 101–115; BP diastolic 44–68; PULSE 72–98; RESP 14–18; TEMP 36.3–37; O2SAT 97–100
[2022-03-27] MEDS: Acetaminophen 500 MG Tablet 1000 MG PO ×4 (00:33→21:30)
[2022-03-27] MEDS: Ketorolac 30 MG/ML Syringe IV (03:26)
[2022-03-27 06:45] LABS: Bedside Glucose 79 mg/dL (74-106)
[2022-03-27 06:47] LABS: Hematocrit 27.6 % (37-47); Hemoglobin 8.7 g/dL (12.0-15.0); Mean Corp Hgb Conc 31.5 g/dL (32-36); Mean Corpuscular Hgb 29.6 pg (27.0-32.0); Mean Corpuscular Volume 93.9 fL (81-99); Mean Platelet Vol. 10.2 fl (6.2-12.0); Platelet Count 173 K/mm3 (150-450); RBC Distribution Width CV 13.8 % (11.6-14.6); RBC Distribution Width SD 47.4 fl (35.1-43.9); Red Blood Count 2.94 M/mm3 (4.2-5.4); White Blood Count 8.6 K/mm3 (4.4-11.0)
--- NOTE | 2022-03-27 08:53 | PCM.PN.OB ---
Subjective Subjective Patient without complaints. Tolerating diet well and positive flatus. Minimal vaginal bleeding reported. Wants to stay until tomorrow. Objective Data Objective Data Wound is clean, dry, intact with Mepilex dressing in place. Good urine output. Hemoglobin okay. Vital Signs: Vital Signs Temp Pulse Resp BP Pulse Ox 97.6 F L 78 16 105/54 L 98 03/27/22 06:31 03/27/22 06:31 03/27/22 06:31 03/27/22 06:31 03/27/22 06:31 Oxygen Delivery Method Room Air Weight: 157 lb 10.088 oz Body Mass Index (BMI) 28.8 Intake & Output: Intake and Output for Last 24 Hours 03/25/22 03/26/22 03/27/22 23:59 23:59 23:59 Intake Total 3479.7 / 3479.7 Output Total 2100 / 2100 825 / 825 Balance 1379.7 / 1379.7 -825 / -825 Lab / Micro Data Result Diagrams: 03/27/22 06:39 Labs: Laboratory Results - last 24 hr 03/26/22 06:00: Chlam trachomat DNA PCR Negative, N.gonorrhoeae DNA (PCR) Negative 03/26/22 09:10: POC Glucose 104 03/27/22 06:36: POC Glucose 79 03/27/22 06:39: WBC 8.6, RBC 2.94 L, Hgb 8.7 L, Hct 27.6 L, MCV 93.9, MCH 29.6, MCHC 31.5 L, RDW Std Deviation 47.4 H, RDW Coeff of Brandon 13.8, Plt Count 173, MPV 10.2 Micro: Microbiology 03/26/22 05:25 Nasal Secretion SARS-CoV-2 Antigen (Rapid) - Final Assessment & Plan (1) H/O section: COMMENT: Repeat C/S at 39 weeks PLAN: Doing well postoperative day #1 status post repeat section. Continuing present care.
[2022-03-27] MEDS: Senna/Docusate Sodium 1 Tablet PO (10:19)
[2022-03-27] MEDS: Citalopram 20 MG Tablet PO (10:20)
[2022-03-27] MEDS: Ibuprofen 600 MG Tablet PO ×3 (10:22→22:38)
--- NOTE | 2022-03-27 16:32 | CASEMGMT ---
Social Work Brief Assessment Labor and Delivery Unit Patient Address: [facility] [place] [address] Phone number: [phone] Date of Referral/Notification: 03/26/2022 Time of Referral: 1146 Referred By: Dr. Nubia Beltre Date of Intervention: 03/27/2022 Time of Intervention: 1340 Reason for Referral: History of depression Informant: Medical record including prior social work assessment and mother of baby (MOB) Ruth Duong History: MOB is a 27-year-old female, to the father of baby (FOB) Dorian Duong. MOB and FOB now have 2 children together: A son, Abdelrahman (born 12/31/2019) and baby girl Alexus (born 03/26/2022). MOB started care with the [facility], and then transferred care around 15 weeks to [place] [facility] [employer]. care adequate. MOB with a history of gestational diabetes. Delivery of infant via repeat at 37 weeks gestation due to placenta previa. Concern during for microcephaly and IUGR. At weighed 2445 g. Apgars 8 and 9 at 1 and 5 minutes of life respectively. 's older brother did have a short stay at the [place] [facility] for issues related to tachypnea. Maternal history of depression and depression. MOB reports significant irritability during that timeframe, being placed on medication which MOB endorses helped tremendously. MOB has maintained on antidepressant throughout the and plans to stay on meds in this timeframe as well. 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 No issues with reading, writing, or learning for either parent. No history of any substance use issues for the parents. And no reported or indicated history regarding domestic violence. Assessment: Met with MOB in room, reintroducing to self and social work role. FOB sleeping on the couch during assessment. And receptive to social work visit. Bright affect mood. MOB reports some anxiety during the related to worry about how the baby was doing, but reports to be very happy now that the baby is born and doing well. Reports feeling that mood is stable and that medication helps. MOB reports should medication not work, would be open to counseling but has not felt the need for it thus far. Reports the FOB gets 3 weeks off of work, and to have family around who are additional support if needed. No concerns about basic needs such as housing, transportation, food, or supplies. Provided MOB a packet on mood and anxiety disorders and reviewed topic. MOB denies any needs or concerns with home-going. No voiced concerns by nursing staff regarding parent-child interactions or bonding. MOB does plan to breast-feed and hopes to continue working with to meet this goal. Plan: MOB and infant will discharge home. MOB plans to maintain her antidepressant regimen, and has been given additional resources on mood and anxiety disorders. No further needs requested or indicated. -GALE Macedo, CORINA *This note was generated with GoChongo dictation software. It may contain incorrect words, spelling, and punctuation that were not noted in review of the chart prior to signing*
[2022-03-28 01:34] VITALS: BP 108/58; PULSE 76; RESP 18
[2022-03-28] MEDS: Acetaminophen 500 MG Tablet 1000 MG PO ×2 (02:46→09:51)
[2022-03-28] MEDS: Ibuprofen 600 MG Tablet PO ×2 (04:43→11:18)
--- NOTE | 2022-03-28 08:42 | PCM.PN.OB ---
Subjective Subjective Patient without complaints. Tolerating diet well. Positive flatus. Minimal vaginal bleeding. Wants to go home today. Objective Data Objective Data Wound is clean, dry, intact covered with Mepilex dressing. Good urinary scratch that good urine output. Vital Signs: Vital Signs Temp Pulse Resp BP Pulse Ox O2 Del Method 98.6 F 76 18 108/58 L 100 Room Air 03/27/22 21:26 03/28/22 01:34 03/28/22 01:34 03/28/22 01:34 03/27/22 15:00 03/28/22 01:34 Oxygen Delivery Method Room Air Weight: 157 lb 10.088 oz Body Mass Index (BMI) 28.8 Intake & Output: Intake and Output for Last 24 Hours 03/26/22 03/27/22 03/28/22 23:59 23:59 23:59 Intake Total 4479.7 / 4479.7 Output Total 2100 / 2100 825 / 825 Balance 2379.7 / 2379.7 -825 / -825 Lab / Micro Data Result Diagrams: 03/27/22 06:39 Labs: Laboratory Results - last 24 hr 03/26/22 05:25: Crossmatch See Detail Micro: Microbiology 03/26/22 05:25 Nasal Secretion SARS-CoV-2 Antigen (Rapid) - Final Assessment & Plan (1) H/O section: COMMENT: Repeat C/S at 39 weeks PLAN: Doing well postoperative day #2 status post repeat section. Will discharge to home with routine instructions.
--- NOTE | 2022-03-28 08:45 | DCINST_ITS ---
Discharge Instructions Diet Discharge Diet: No restrictions Activity May resume sexual activity in: 4-6 weeks Lifting Restrictions: 20 pounds Additional Activity Instructions:: Nothing in the vagina for 4 weeks please; no lifting more than 20-25 lbs for 6 weeks. Use Ibuprophen 800 mg orally every 8 hours as needed for pain. Can also add Tylenol 1000 mg every 8 hours if needed for pain. If Ibuprophen and Tylenol are not effective then use the Oxycodone but keep in mind it can cause serious constipation issues. Drink lots of water. Call if bleeding more than a pad per hour. Use the colace as constipation is a big issue after this type of surgery. Steps and walking are OK. Activity is encouraged but do not over do it !! Dressing / Incision Call your doctor if your incision/area has: Continuous Slow Oozing, Sudden Increased Bleeding, Increased Pain/ Swelling, Increased Redness and Foul Smelling Discharge Call your doctor if you observe: Fever of 101 or Higher, Inability to urinate, Inability to have a bowel movement and Using more than 1 pad per hour Follow Up Care Please Follow Up With: Nubia Beltre DO When: Call [phone] for appointment to be seen in 2 weeks. Test Results: Test results from this visit will be discussed in further detail at your follow- up appointment, if applicable. Discharge Plan Admission Admit Date/Time: 03/26/22 04:57 Primary Reason for Your Visit: Repeat Section Attending Provider: Nubia Beltre Primary Care Provider: Nereida Saba,Joseline Primary Discharge Orders/Prescriptions Prescriptions: New oxycodone 5 mg Tablet 5 mg PO Q6H PRN (Reason: pain) 4 Days Qty: 20 0RF Continued PNV-DHA 27 mg iron-1 mg -300 mg capsule 1 cap PO DAILY citalopram [Celexa] 20 mg tablet 20 mg PO DAILY Discontinued promethazine 12.5 mg tablet 12.5 mg PO Q6H PRN (Reason: nausea and vomiting) Qty: 60 2RF Referrals / Follow Up: Care Physician,No Primary [Primary Care Provider] - Disposition Disposition (needs filled in before D/C Order can be placed): Home, Self Care
[2022-03-28 09:00] VITALS: BP 112/56; PULSE 83; RESP 15; TEMP 37.2; O2SAT 96
[2022-03-28] MEDS: Citalopram 20 MG Tablet PO (09:52)
[2022-03-28] MEDS: Enoxaparin 40 MG/0.4 ML Syringe SC (09:53)
[2022-03-28] MEDS: Senna/Docusate Sodium 1 Tablet PO (09:53)
[2022-03-28 13:00] VITALS: BP 122/59; PULSE 96; RESP 16; TEMP 36.8
== END 2022-03-28 14:20 | disposition home or self-care (01) | DRG 788 ==
PROVIDERS: Admitting Provider Student in an Organized Health Care Education/Training Program; Referring Provider Student in an Organized Health Care Education/Training Program; Visit Provider Student in an Organized Health Care Education/Training Program
PROC: 10D00Z1 Extraction of Products of Conception, Low, Open Approach (ICD-10-PCS; CPT 59514; principal; 2022-03-26 07:15)
DX: O44.03 Complete placenta previa NOS or without hemorrhage, third trimester (principal); O24.420 Gestational diabetes mellitus in childbirth, diet controlled; F32.A Depression, unspecified; Z3A.37 37 weeks gestation of pregnancy; O34.211 Maternal care for low transverse scar from previous cesarean delivery; Z37.0 Single live birth; O99.344 Other mental disorders complicating childbirth
CPT/HCPCS: 59050; 82962; 85025; 85027; 86850; 86900; 86901; 86920; 87426; 87491; 87591; 99218; 99251; J7120; A4216; G0378; G0463; J2405

== ENCOUNTER → 2022-08-21 | Outpatient (CLI) | payer OTHER, SELFPAY ==
[2022-08-21 11:35] LABS: Glucose 2 Hour Postprandial 175 mg/dL (<140)
== END | disposition home or self-care (01) ==
LOC: WOBLAB 08:44
PROVIDERS: Visit Provider Student in an Organized Health Care Education/Training Program
DX: Z86.32 Personal history of gestational diabetes (principal)
CPT/HCPCS: 36415; 82950

== ENCOUNTER 2025-04-12 12:29 | Emergency (ER) | payer OTHER, SELFPAY ==
[2025-04-12 12:30] VITALS: BP 156/125; PULSE 87; RESP 20; TEMP 36.6; O2SAT 100
--- NOTE | 2025-04-12 13:20 | RAD_ITS ---
PROCEDURE: FOOT MIN 3 VIEWS 04/12/2025 REASON FOR EXAM: INJURY TECHNIQUE: FOOT MIN 3 VIEWS COMPARISON: None FINDINGS: Bones: No visible fracture. No suspicious bone lesion. Joints: Normal alignment. Soft tissues: Soft tissues are unremarkable. Other: RAD/Foot min 3 Views IMPRESSION: Unremarkable examination. Reading Location: [id number]
--- NOTE | 2025-04-12 13:20 | RAD_ITS ---
PROCEDURE: FOOT MIN 3 VIEWS 04/12/2025 REASON FOR EXAM: INJURY TECHNIQUE: FOOT MIN 3 VIEWS COMPARISON: None FINDINGS: Bones: No visible fracture. No suspicious bone lesion. Joints: Normal alignment. Soft tissues: Soft tissues are unremarkable. Other: RAD/Foot min 3 Views IMPRESSION: Unremarkable examination. Reading Location: [id number]
--- NOTE | 2025-04-12 13:21 | ED.VIS.LOWEX ---
HPI History of Present Illness Chief Complaint: Lower Extremity Injury Informant: patient and spouse/S.O. Narrative Narrative: Presents with skin other evaluation injury bilateral feet. Was moving a custom table, reported the leg was a custom beam weighing 200 pounds it fell off falling onto both feet. Pain mostly to the right, laceration of the left. Tetanus from records 2021. No blood thinners. No allergies. No other injuries. Patient states she was wearing sandals. Tetanus Immunization: <5 years PFSH PFSH Medical History COVID-19 vaccine series completed depression Acid reflux History of gestational diabetes Home Medications ?Medication ?Instructions ?Recorded ?Last Taken ?Type multivitamin no.47-iron fum 27 1 cap PO DAILY 09/05/21 03/19/22 History mg-folate no.1 1 mg-dha 300 mg capsule (PNV-DHA) citalopram 20 mg tablet (Celexa) 20 mg PO DAILY PPD 03/26/22 03/22/22 History oxycodone 5 mg tablet 5 mg PO Q6H PRN pain 4 days #20 03/26/22 Unknown Rx tabs meclizine 25 mg tablet (Dramamine 25 mg PO DAILY PRN dizziness #30 08/02/23 Unknown Rx (meclizine)) tabs tramadol 50 mg tablet 50 mg PO Q6H PRN pain #12 tabs 04/12/25 Unknown Rx Allergy/AdvReac Type Severity Reaction Status Date / Time No Known Allergies Allergy Verified 04/12/25 12:50 Family History Mother Cervical cancer Surgical History Previous section H/O section Social History household members: family housing: house number of children: 1 Smoking Status: Never smoker second hand exposure: No alcohol intake: never substance use type: does not use caffeine: No what type of physical activity do you participate in: walking frequency: 3-4 times per week seatbelt use: always do you feel safe at home: Yes additional social history: - Dorian-Works at [employer] Patient works at [employer] ED Constitutional Constitutional ED: Denies fever(s) Cardiovascular Cardiovascular: Denies chest pain Respiratory/Chest Respiratory/Chest: Denies cough Gastrointestinal Gastrointestinal: Denies diarrhea or vomiting Musculoskeletal Musculoskeletal: Reports other Details: Bilateral feet injury Integumentary Denies rash or wounds Neurologic Neurologic: Denies weakness EXAM Physical Exam Const Vital Signs: 04/12/25 12:30 04/12/25 14:59 04/12/25 16:29 Temperature 97.8 F 97.8 F Temperature Source Temporal Pulse Rate 87 89 76 Respiratory Rate 20 H 16 18 Blood Pressure 156/125 H 128/74 H Blood Pressure Mean 135 92 Pulse Ox 100 100 100 Oxygen Delivery Method Room Air Positive well nourished and well developed Constitutional Narrative: GCS 15. General Appearance ED: well developed HEENT normocephalic and atraumatic Eyes General Eye ED: Yes normal appearance of both eyes Neck full ROM Resp normal respiratory effort and normal air movement Cardio regular rate and regular rhythm GI soft to palpation Extremity Extremity Narrative: Right lower extremity: No knee or ankle tenderness. There was ecchymosis dorsal foot there was linear abrasion dried blood midfoot medially. No active bleeding. Left lower extremity: No knee or ankle tenderness. There was a 1.5 cm dorsal laceration horizontally across distal first metatarsal mild bleeding controlled with pressure. No segment bony tenderness or swelling. Neuro oriented x3 Skin Skin Narrative: See above MDM MDM MDM Narrative Medical decision making narrative: Interventions / MDM: Differential diagnosis: Closed fracture, laceration Diagnosis considered but do not suspect: No clinical open fracture My EKG interpretation: N/A Imaging independently reviewed and interpreted by myself: Right foot x-ray 3 views: Fracture midshaft metatarsals 1 through 3. Left foot x-ray 3 views: No fracture noted. External documents reviewed: N/A Test considered but not ordered:N/A ED course: Patient blunt injury bilateral feet. X-rays ordered both feet. Tetanus in 2021. Patient history anxiety concerns for increasing attack. She is treated with hydroxyzine and ibuprofen for pain. She declined anything stronger. Discussed with her left foot laceration preparations for repair. X-rays left foot negative for fracture right foot fractures metatarsals 1 through 3. Patient's abrasion was proximal to the fracture therefore low concerns for open fracture. I did send photos through backline to beam carrier hauler pusher on-call Dr. Villar, agrees with treatment. Agrees with posterior splint nonweightbearing with crutches. He will follow-up in the office within a week. This was discussed with patient and significant other. Laceration repair: Verbal consent. Normal sterile conditions. 2 cc 1% lidocaine used for local analgesia left foot wound. Cleanse with normal saline. Laceration repaired using total 2, 5-0 nylon simple interrupted sutures good approximation. Bacitracin placed dressing placed by myself. Patient tolerated the procedure well. Splinting: Verbal consent. Xeroform dressing placed over the abrasion proximately with 4 x 4. Nylon sleeve over the foot and lower leg. Kerlix dressing extra padding over the forefoot. 5 inch plaster posterior short splint was placed. Secured with Pete wrap. Neurovascular tact post splinting. Patient was written a short prescription for tramadol she did not want any stronger to help for nighttime sleeping. Information for podiatry for follow-up. All questions were answered. Re-evaluation: stable Disposition discussed with patient/family/significant other: Patient significant other Case discussed with consulting clinician: Podiatry This note was generated with [employer] dictation software. It may contain incorrect words, spelling, and punctuation that were not noted in checking the note before signing. Radiography Diagnostic Testing: Clinical Impression(s) from Imaging Studies Foot X-Ray 04/12/25 13:20 IMPRESSION: Unremarkable examination. Reading Location: [id number] Foot X-Ray 04/12/25 13:22 IMPRESSION: Nondisplaced fracture of the base of the 1st metatarsal as well as the midportions of the 2nd and 3rd metatarsals. Soft tissue swelling. Reading Location: [id number] Discharge Plan Triage Chief Complaint: Lower Extremity Injury ED Provider: Dao Trujillo Dx/Rx/DC Orders Clinical Impression: Foot fracture, right, Laceration of foot, left, Blunt force injury Instructions: ED Fracture, Foot, ED Laceration, Foot: All Closures Prescriptions: New tramadol 50 mg tablet 50 mg PO Q6H PRN (Reason: pain) Qty: 12 0RF No Action PNV-DHA 27 mg iron-1 mg -300 mg capsule 1 cap PO DAILY meclizine [Dramamine (meclizine)] 25 mg tablet 25 mg PO DAILY PRN (Reason: dizziness) Qty: 30 0RF citalopram [Celexa] 20 mg tablet 20 mg PO DAILY oxycodone 5 mg Tablet 5 mg PO Q6H PRN (Reason: pain) 4 Days Qty: 20 0RF Primary Care Provider: Thais Shetty NP Referrals: Fantasma Villar MD [Med Staff - Active Staff] - Thais Shetty NP, DATA OFFICER-C [Primary Care Provider] - Activity Restrictions/Additional Instructions: Right foot fracture as shown to you 1st or 3rd metatarsal. Maintain splint nonweightbearing crutches. Take pain medicine as prescribed. Lacerated left foot with 2 stitches placed. Discuss[address] with Dr. Villar. Follow-up with him in the next 3 to 5 days. his phone number to his [place] office. Print Language: Kuwaiti Disposition Disposition: Home, Self Care Discharge Date/Time: 04/12/25 16:30
--- NOTE | 2025-04-12 13:22 | RAD_ITS ---
PROCEDURE: FOOT MIN 3 VIEWS 04/12/2025 REASON FOR EXAM: INJURY TECHNIQUE: FOOT MIN 3 VIEWS COMPARISON: None FINDINGS: Bones: Nondisplaced transverse fracture through the proximal portion of the 1st metatarsal as well as in the mid shaft of the 2nd and 3rd metatarsals. Joints: Normal alignment. Soft tissues: Soft tissue swelling. Other: RAD/Foot min 3 Views IMPRESSION: Nondisplaced fracture of the base of the 1st metatarsal as well as the midporti ons of the 2nd and 3rd metatarsals. Soft tissue swelling. Reading Location: [id number]
--- NOTE | 2025-04-12 13:22 | RAD_ITS ---
PROCEDURE: FOOT MIN 3 VIEWS 04/12/2025 REASON FOR EXAM: INJURY TECHNIQUE: FOOT MIN 3 VIEWS COMPARISON: None FINDINGS: Bones: Nondisplaced transverse fracture through the proximal portion of the 1st metatarsal as well as in the mid shaft of the 2nd and 3rd metatarsals. Joints: Normal alignment. Soft tissues: Soft tissue swelling. Other: RAD/Foot min 3 Views IMPRESSION: Nondisplaced fracture of the base of the 1st metatarsal as well as the midporti ons of the 2nd and 3rd metatarsals. Soft tissue swelling. Reading Location: [id number]
[2025-04-12] MEDS: Lidocaine 1% (20 ml mdv) 20 ML Vial INFILT (13:48)
[2025-04-12] MEDS: hydrOXYzine PAM 25 MG Capsule PO (13:48)
[2025-04-12 14:59] VITALS: PULSE 89; RESP 16; O2SAT 100
[2025-04-12 16:29] VITALS: BP 128/74; PULSE 76; RESP 18; TEMP 36.6; O2SAT 100
== END 2025-04-12 16:30 | disposition home or self-care (01) ==
PROVIDERS: Emergency Provider Emergency Medicine; PCP Registered Nurse; Visit Provider Emergency Medicine
DX: S91.312A Laceration without foreign body, left foot, initial encounter (principal); F41.9 Anxiety disorder, unspecified; S92.31 Fracture of first metatarsal bone; W20.8XXA Other cause of strike by thrown, projected or falling object, initial encounter
CPT/HCPCS: 12001; 73630; 99284; A4216